=== PATIENT | male | born 1940 | race Caucasian/White ===

== ENCOUNTER 2017-06-24 21:41 | Emergency (ER) | payer MEDICARE, OTHER ==
[2017-06-24] MEDS ORDERED: Metoclopramide 10 MG/2 ML SDV IVPUSH ONE (22:32)
[2017-06-24] MEDS ORDERED: LORazepam 2 MG/ML MDV IVPUSH ONE (22:33)
--- NOTE | 2017-06-24 22:33 | EDM.PDOC ---
ED HPI GENERAL MEDICAL PROBLEM - General Chief Complaint: Neuro Symptoms/Deficits Stated Complaint: DIZZY/NAUSEA Time Seen by Provider: 06/24/17 22:32 Source of Information: Reports: Patient History Limitations: Reports: No Limitations - History of Present Illness INITIAL COMMENTS - FREE TEXT/NARRATIVE: 77-year-old male presents to the ED with a sense of feeling off balance. This started about 1900 hrs. last evening so she with nausea and vomiting. Denies falling or hitting his head recently. No changes recent change in medications. Eyes any recent sinus infection or colds. He does have an anxiety issue and he states this did of course precipitate anxiety but is different than what is expressed in the past. He came because he was worried that he might be having a stroke or heart attack. He holds still has no symptoms. He has no history of vertigo in the past. Onset: Today Onset Date: 06/24/17 Onset Time: 19:00 Duration: Hour(s): Location: Reports: Generalized (Sense of off balance and that he might be spinning versus the room.) Quality: Reports: Other Severity: Moderate (Vertigo) Improves with: Reports: Rest Worsens with: Reports: Movement (Not moving.) Context: Denies: Activity ( Otherwise head and neck.), Exercise, Lifting, Sick Contact, Trauma, Other Associated Symptoms: Reports: Weakness, Other. Denies: No Other Symptoms, Confusion, Chest Pain, Cough, Diaphoresis, Fever/Chills, Headaches, Loss of Appetite, Malaise, Nausea/Vomiting, Rash, Seizure, Shortness of Breath, Syncope Treatments W[employer]PROO[employer] HELPER: Reports: Other (see below) Bilateral Shoulder Pain Score (Numeric/FACES): 4 - Related Data Allergies Allergy/AdvReac Type Severity Reaction Status Date / Time No Known Allergies Allergy Verified 06/24/17 21:59 Home Meds: Home Meds Ascorbic Acid [C-1000] 500 mg PO DAILY 06/24/17 [History] Aspirin 81 mg PO DAILY 06/24/17 [History] Azelastine/Fluticasone [Dymista Nasal [place]] 2 spray NASBOTH DAILY 06/24/17 [ History] Calcium Citrate/Vitamin D3 [Calcium Citrate + D] 1 tab PO DAILY 06/24/17 [ History] Celecoxib [CeleBREX] 100 mg PO DAILY 06/24/17 [History] Dorzolamide/Timolol [Cosopt 2%-0.5% Ophth Soln] 1 drop EYERT DAILY 06/24/17 [ History] Esomeprazole [NexIUM] 40 mg PO DAILY 06/24/17 [History] Hydrochlorothiazide 25 mg PO DAILY 06/24/17 [History] Ipratropium [place] 1 spray NASBOTH BID 06/24/17 [History] Losartan [Cozaar] 100 mg PO DAILY 06/24/17 [History] Loteprednol Etabonate [Lotemax] 1 drop EYERT DAILY 06/24/17 [History] Meclizine [Antivert] 12.5 mg PO TID #15 tablet 06/24/17 [Rx] Metoprolol Succinate [Toprol XL] 25 mg PO DAILY 06/24/17 [History] Multivitamin with Minerals [Multivitamins with Minerals] 2 tab PO DAILY [History] Simvastatin [Zocor] 20 mg PO BEDTIME 06/24/17 [History] amLODIPine [Norvasc] 10 mg PO DAILY 06/24/17 [History] Past Medical History HEENT History: Reports: Cataract, Impaired Vision Other HEENT History: Wears glasses Cardiovascular History: Reports: Arrhythmia, High Cholesterol, Hypertension Other Cardiovascular History: A-fib Respiratory History: Reports: Asthma Musculoskeletal History: Reports: Arthritis, Gout Psychiatric History: Reports: Anxiety - Past Surgical History HEENT Surgical History: Reports: Cataract Surgery GI Surgical History: Reports: Colonoscopy, EGD Musculoskeletal Surgical History: Reports: Knee Replacement, Shoulder Replacement Social & Family History - Tobacco Use Smoking Status *Q: Former Smoker Used Tobacco, but Quit: Yes Month Tobacco Last Used: 1976 - Alcohol Use Days Per Week of Alcohol Use: 2 Number of Drinks Per Day: 1 Total Drinks Per Week: 2 - Recreational Drug Use Recreational Drug Use: Yes - Living Situation & Occupation Living situation: Reports: Occupation: Retired ED ROS GENERAL - Review of Systems Review Of Systems: See Below Constitutional: Denies: Fever, Chills, Malaise, Weakness, Fatigue, Decreased Appetite HEENT: Reports: Glasses, Vertigo. 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 He also has chronic back pain is spine and neck.) Skin: Reports: Bruising (Bruises easily as he is on Eliquis.) Neurological: Reports: No Symptoms, Change in Speech Hematologic/Lymphatic: Reports: No Symptoms ED EXAM GENERAL NO PERIP PULSE - Physical Exam Exam: See Below Exam Limited By: No Limitations General Appearance: Alert, Anxious, Mild Distress Eye Exam: Bilateral Eye: Normal Inspection (No nystagmus.) Ears: Normal External Exam, Normal Canal, Normal TMs Throat/Mouth: Normal Inspection, Normal Lips, Normal Teeth, Normal Oropharynx, Other (Uvula in the midline) Head: Atraumatic, Normocephalic Neck: Normal Inspection, Supple, Non-Tender, Full Range of Motion Respiratory/Chest: No Respiratory Distress, Lungs Clear, Normal Breath Sounds, No Accessory Muscle Use Cardiovascular: Normal Peripheral Pulses, Regular Rate, Rhythm, No Edema, No Gallop (46/m.), Bradycardia (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 Normal alternate rapid alternating movements and normal [id number] and heel-to- marroquin exams) Psychiatric: Normal Affect, Normal Mood Skin Exam: Warm, Dry, Intact, Normal Color, No Rash Course - Vital Signs Last Recorded V/S: Last Vital Signs Temp 36.2 C 06/24/17 21:59 Pulse 46 L 06/24/17 21:59 Resp 13 06/24/17 21:59 BP 175/79 H 06/24/17 21:59 Pulse Ox 92 L 06/24/17 21:59 - Orders/Labs/Meds Orders: Active Orders 24 hr Category Date Time Status Sodium Chloride 0.9% [Normal Saline] 1,000 ml Med 06/24/17 22:45 Active IV ASDIRECTED Medication Orders Sodium Chloride (Normal Saline) 1,000 mls @ 150 mls/hr IV ASDIRECTED VALARIE Last Admin: 06/24/17 22:49 Dose: 150 mls/hr Meds: Medications Generic Name Dose Route Start Last Admin Trade Name Vito PRN Reason Stop Dose Admin Sodium Chloride 1,000 mls @ 150 mls/hr 06/24/17 22:45 06/24/17 22:49 Normal Saline IV 150 mls/hr ASDIRECTED VALARIE Administration Discontinued Medications Generic Name Dose Route Start Last Admin Trade Name Vito PRN Reason Stop Dose Admin Lorazepam 0.5 mg 06/24/17 22:33 06/24/17 22:49 Ativan IVPUSH 06/24/17 22:34 0.5 mg ONETIME ONE Administration Metoclopramide HCl 5 mg 06/24/17 22:32 06/24/17 22:50 Reglan IVPUSH 06/24/17 22:33 5 mg ONETIME ONE Administration - Radiology Interpretation Free Text/Narrative:: 77-year-old male presents the ED with typical signs and symptoms of proximal is more vertigo however he is not experiences in the past. Examination shows no definitive nystatin this. Neuro exam is otherwise completely normal. When he's at rest he has no symptoms. Symptoms started suddenly about 1900 hrs. last night. Associated nausea and did vomit once. Examination is otherwise normal. Plan IV D5 normal saline 150 mils per hour. Given Reglan 5 mg IV and Ativan 0.5 mg IV to stabilize balance mechanism. - Re-Assessments/Exams Free Text/Narrative Re-Assessment/Exam: 06/25/17 00:10: Got him up and walking and actually did very well with very minimal mild dizziness or feeling of off balance feeling. He will therefore be discharged to home. If he has similar symptoms tomorrow he is to fill prescription for Antivert 12.5 mg 3 times daily for the next 5 days. If he remains asymptomatic ED to no further medications. Patient and reassured that nothing serious is wrong other than vertigo symptoms. Departure - Departure Time of Disposition: 00:25 Disposition: Home, Self-Care 01 Condition: Fair Clinical Impression: Benign paroxysmal vertigo of left ear - Discharge Information Prescriptions: Meclizine [Antivert] 12.5 mg PO TID #15 tablet Instructions: Benign Positional Vertigo Referrals: William Baez MD [Primary Care Provider] - Forms: ED Department Discharge Additional Instructions: Evaluation the emergency room tonight in regards to sudden onset of vertigo symptoms when you felt off balance and like you were perhaps spinning or offkilter. This is associated with development of nausea vomiting. This is called vertigo it is due to mechanical problem with one of the balance mechanisms in the middle ear cavity called the labyrinth. Exam suggested that the left balance mechanism may not be working quite appropriately tonight. You are therefore given medication Reglan 5 mg with Ativan 0.5 mg to stabilize the balance mechanism. This seemed to have settled things down quite nicely as you' re able to get up and walk with only slight dizziness. Tomorrow morning to wish you to adopt a wait and see approach. If you experience further similar type events then going fill prescription for Antivert 12.5 mg tablets these are taken 1 every 8 hours for the next 5 days to bring the vertigo under control. They also stop vomiting. However if you don't expect any more vertigo attacks that do not fill the prescription. Follow-up with personal physician if you're not completely back to normal in 6 days time. - My Orders Last 24 Hours: My Active Orders 06/24/17 22:45 Sodium Chloride 0.9% [Normal Saline] 1,000 ml IV ASDIRECTED - Assessment/Plan Last 24 Hours: My Active Orders 06/24/17 22:45 Sodium Chloride 0.9% [Normal Saline] 1,000 ml IV ASDIRECTED
[2017-06-24] MEDS ORDERED: Sodium Chloride 0.9% 1,000 ML IV SCH (22:45)
== END 2017-06-25 00:35 | disposition home or self-care (01) ==
LOC: JD.ED 21:41
DX: H81.12 Benign paroxysmal vertigo, left ear (principal); I10 Essential (primary) hypertension; E78.00 Pure hypercholesterolemia, unspecified; Z87.891 Personal history of nicotine dependence; Z79.82 Long term (current) use of aspirin; Z79.899 Other long term (current) drug therapy
CPT/HCPCS: 96361; 96374; 96375; 99284; J2060; J2765; J7040

== ENCOUNTER 2020-12-09 13:13 | Emergency (ER) | payer MEDICARE, OTHER ==
[2020-12-09] MEDS ORDERED: Diltiazem 50 MG/10 ML SDV IVPUSH ONE (14:17)
--- NOTE | 2020-12-09 14:19 | EDM.PDOC ---
ED HPI GENERAL MEDICAL PROBLEM - General Chief Complaint: Cardiovascular Problem Stated Complaint: POSS AFIB Time Seen by Provider: 12/09/20 14:01 Source of Information: Reports: Patient, Family (daughter) History Limitations: Reports: No Limitations - History of Present Illness INITIAL COMMENTS - FREE TEXT/NARRATIVE: 1-year-old male presents to the ED in the accompaniment of his daughter. He states around 0930 hrs. this morning he appreciated palpitations or fluttering in his chest. He had no associated central chest pain. He has does have some pressure in the nape of his neck. He claims that this causes a bit of a headache at the back of his head. No nausea no vomiting no diaphoresis he does not feel weak in his legs. He also does not feel short of breath. He has a history of intermittent paroxysmal atrial fibrillation off and on for the last 7 to 8 years. Rate control is metoprolol succinate 25 mg daily. He is on baby aspirin daily. No distress from the heart rate which on the monitor is been averaging 110 bpm. ECG shows rate anywhere between 80 to 130/min. Onset: Today, Sudden Onset Date: 12/09/20 Onset Time: 09:30 Duration: Hour(s):, Constant Location: Reports: Chest (Fluttering feeling central mid chest.). Denies: Rad iates to Quality: Reports: Other (Fluttering in chest.) Severity: Mild Improves with: Reports: None Worsens with: Reports: None Context: Reports: Other (Spontaneous occurrence this morning upon awakening.). Denies: Activity, Exercise, Lifting, Sick Contact, Trauma Associated Symptoms: Denies: Confusion, Chest Pain, Cough, cough w sputum, Diaphoresis, Fever/Chills, Headaches, Loss of Appetite, Malaise, Nausea/Vomiting, Rash, Seizure, Shortness of Breath, Syncope, Weakness Treatments [employer]BER: Reports: Other (see below) (Only has medications this morning except for his albuterol inhaler.) - Related Data Allergies Allergy/AdvReac Type Severity Reaction Status Date / Time No Known Allergies Allergy Verified 12/09/20 13:37 Home Meds: Home Meds Ascorbic Acid [C-1000] 500 mg PO DAILY 06/24/17 [History] Aspirin 81 mg PO DAILY 06/24/17 [History] Azelastine/Fluticasone [Dymista Nasal Wake] 2 spray NASBOTH DAILY 06/24/17 [History] Calcium Citrate/Vitamin D3 [Calcium Citrate + D] 1 tab PO DAILY 06/24/17 [History] Celecoxib [CeleBREX] 100 mg PO DAILY 06/24/17 [History] Dorzolamide/Timolol [Cosopt 2%-0.5% Ophth Soln] 1 drop EYERT DAILY 06/24/17 [ History] Esomeprazole [NexIUM] 40 mg PO DAILY 06/24/17 [History] Hydrochlorothiazide 25 mg PO DAILY 06/24/17 [History] Ipratropium [place] 1 spray NASBOTH BID 06/24/17 [History] Losartan [Cozaar] 100 mg PO DAILY 06/24/17 [History] Loteprednol Etabonate [Lotemax] 1 drop EYERT DAILY 06/24/17 [History] Meclizine [Antivert] 12.5 mg PO TID #15 tablet 06/24/17 [Rx] Metoprolol Succinate [Toprol XL] 25 mg PO DAILY 06/24/17 [History] Multivitamin with Minerals [Multivitamins with Minerals] 2 tab PO DAILY 06/24/17 [History] Simvastatin [Zocor] 20 mg PO BEDTIME 06/24/17 [History] amLODIPine [Norvasc] 10 mg PO DAILY 06/24/17 [History] Past Medical History HEENT History: Reports: Cataract, Glaucoma, Impaired Vision Other HEENT History: Wears glasses Cardiovascular History: Reports: Afib (Paroxysmal intermittent atrial fibrillation.), Arrhythmia, High Cholesterol, Hypertension, SOB on Exertion. Denies: VT, PVD Other Cardiovascular History: A-fib Respiratory History: Reports: Asthma, COPD Musculoskeletal History: Reports: Arthritis, Gout, Osteoarthritis Psychiatric History: Reports: Anxiety - Past Surgical History HEENT Surgical History: Reports: Cataract Surgery GI Surgical History: Reports: Appendectomy, Cholecystectomy, Colonoscopy, EGD, Hernia, Inguinal Musculoskeletal Surgical History: Reports: Knee Replacement (Bilateral knee replacements.), Shoulder Replacement (Both shoulders have been replaced. The left has been worked on x2.) Other Musculoskeletal Surgeries/Procedures:: bilateral knee and shoulder Social & Family History - Tobacco Use Tobacco Use Status *Q: Former Tobacco User Used Tobacco, but Quit: Yes Month/Year Tobacco Last Used: 1989 - Caffeine Use Caffeine Use: Reports: None - Recreational Drug Use Recreational Drug Use: No - Living Situation & Occupation Living situation: Reports: Occupation: Retired ED ROS GENERAL - Review of Systems Review Of Systems: See Below Constitutional: Reports: Fatigue, Decreased Appetite. Denies: Fever, Chills, Malaise, Weakness, Weight Loss HEENT: Reports: Glasses, Other (Acuity problems due to glaucoma and macular degeneration.) Respiratory: Reports: Shortness of Breath, Wheezing, Cough. Denies: Pleuritic Chest Pain (Is no wheezing with his asthma COPD.), Sputum, Hemoptysis Cardiovascular: Reports: Blood Pressure Problem, Dyspnea on Exertion ( Usually little around the ankles.), Edema (Air.), Lightheadedness, Palpitations. Denies: Chest Pain, Claudication, Orthopnea Endocrine: Reports: Fatigue (Aware of palpitations this morning.) GI/Abdominal: Reports: Constipation (Occasional), Decreased Appetite. Denies: Melena, Nausea, Stool Incontinence, Vomiting : Reports: Frequency, Other (Nocturia x2. Known BPH.) Musculoskeletal: Reports: Joint Pain (30 changes knees hips neck and lumbar spine. He said both shoulders repaired i.e. total shoulder replacements with the left being required to be done twice.) Skin: Reports: Bruising (Bruises extremely easily.) Neurological: Reports: Headache (Pressure in the nape of his neck with a headache.). Denies: Confusion, Dizziness, Numbness, Pre-Existing Deficit, Seizure, Syncope, Tingling, Trouble Speaking, Difficulty Walking, Weakness Psychiatric: Reports: No Symptoms, Other Hematologic/Lymphatic: Reports: No Symptoms Immunologic: Reports: No Symptoms ED EXAM, GENERAL - Physical Exam Exam: See Below (Admits that he has been under good deal of stress the last 3 weeks.) Exam Limited By: Other (Temperature is 36.4 degrees. Heart rate 100 and irregular regular on the monitor. Respiratory is 20 with pulse ox of 94% room air) General Appearance: Alert, WD/WN, No Apparent Distress Eye Exam: Bilateral Eye: Normal Inspection (No blepharal pallor or scleral icter us.), PERRL Throat/Mouth: Normal Inspection, Normal Lips, Normal Oropharynx. No: Normal Teeth Head: Atraumatic, Normocephalic Neck: Normal Inspection, Supple, Non-Tender, Full Range of Motion. No: Lymphadenopathy (L), Lymphadenopathy (R) Respiratory/Chest: No Accessory Muscle Use, Respiratory Distress, Decreased Breath Sounds (Decreased air into the lower 25% lung quarles bilaterally.), Rales (Intermittent wheezing both lower lobes on forced expiration.), Wheezing. No: Lungs Clear, Normal Breath Sounds (Mild tachypnea.) Cardiovascular: No Gallop, No Murmur, No Rub, Irregularly Irregular. No: Normal Peripheral Pulses, Regular Rate, Rhythm, No Edema Peripheral Pulses: 1+: Posterior Tibial (L), Posterior Tibial (R), Dorsalis Pedis (L), Dorsalis Pedis (R), 2+: Carotid (L), Carotid (R) GI/Abdominal: Normal Bowel Sounds, Soft, Non-Tender, No Organomegaly, No Mass, Pelvis Stable, Other (Evidence of previous cholecystectomy.) Back Exam: Normal Inspection, Full Range of Motion. No: CVA Tenderness (L), CVA Tenderness (R) Extremities: Pedal Edema (Trace pedal edema 1+ at the ankles and dorsal feet.), Other (Extremities I dorsal hands wrists and forearms are dark black-purple in color from chronic bleeding into the subcutaneous tissues I believe from being on antiplatelet inhibitors. Currently he is only on aspirin he has marked atrophy of the left upper shoulder muscles , particular the deltoid f). No: Joint Swelling (Patient has had bilateral total shoulder replacements and bilateral total knee replacements.) Neurological: Alert, Oriented, CN II-XII Intact, Normal Cognition Psychiatric: Normal Affect, Normal Mood Skin Exam: Warm, Dry, Intact, Normal Color, No Rash #1 Interpretation EKG Date: 12/09/20 Time: 13:50 Rhythm: A-Fib Rate (Beats/Min): 97 [place]: LAD-Left [place] Deviation (Mild left axis deviation of -13 degrees) P-Wave: Variable QRS: Other (Initial poor R wave progression consider possible old anteroseptal myocardial infarction. Q waves are present leads III and aVF consider old inferior wall myocardial infarction.) ST-T: Other (Diffuse early repolarization pattern.) QT: Normal EKG Interpretation Comments: Abnormal ECG #2 Interpretation EKG Date: 12/09/20 Time: 15:08 Rhythm: Other Rate (Beats/Min): 54 (Occasional PVCs) [place]: LAD-Left [place] Deviation (Mild left axis deviation -11 degrees) P-Wave: Present QRS: Other (Q-wave V1 with near Q wave V2 V3 consider possible old anteroseptal myocardial infarction. Q-wave lead III and aVF suggestive of old inferior wall myocardial infarction. Tall R wave in lead I is suggestive of left ventricular perjury pattern. Abnormal ECG) ST-T: Other (T wave flattening lead III) QT: Normal EKG Interpretation Comments: Normal ECG Course - Vital Signs Last Recorded V/S: Last Vital Signs Temp 36.4 C 12/09/20 13:29 Pulse 60 12/09/20 16:30 Resp 16 12/09/20 16:30 BP 134/76 12/09/20 16:30 Pulse Ox 95 12/09/20 16:30 - Orders/Labs/Meds Labs: Laboratory Tests 12/09/20 12/09/20 12/09/20 Range/Units 14:45 14:45 14:45 WBC 7.97 (4.23-9.07) K/mm3 RBC 5.18 (4.63-6.08) M/mm3 Hgb 15.7 (13.7-17.5) gm/dl Hct 46.2 (40.1-51.0) % MCV 89.2 (79.0-92.2) fl MCH 30.3 (25.7-32.2) pg MCHC 34.0 (32.2-35.5) g/dl RDW Std Deviation 43.8 (35.1-43.9) fL Plt Count 143 L (163-337) K/mm3 MPV 10.7 (9.4-12.3) fl Neut % (Auto) 82.1 H (34.0-67.9) % Lymph % (Auto) 6.6 L (21.8-53.1) % [place] % (Auto) 9.9 (5.3-12.2) % Eos % (Auto) 0.5 L (0.8-7.0) Baso % (Auto) 0.6 (0.1-1.2) % Neut # (Auto) 6.54 H (1.78-5.38) K/mm3 Lymph # (Auto) 0.53 L (1.32-3.57) K/mm3 [place] # (Auto) 0.79 (0.30-0.82) K/mm3 Eos # (Auto) 0.04 (0.04-0.54) K/mm3 Baso # (Auto) 0.05 (0.01-0.08) K/mm3 Manual Slide Review Abnormal smear PT 11.3 (9.7-12.0) SECONDS INR 1.06 APTT 33.6 H (21.7-31.4) SECONDS Sodium 137 (136-145) mEq/L Potassium 3.9 (3.5-5.1) mEq/L Chloride 99 (98-107) mEq/L Carbon Dioxide 26 (21-32) mEq/L Anion Gap 15.9 H (5-15) BUN 24 H (7-18) mg/dL Creatinine 1.2 (0.7-1.3) mg/dL Est Cr Clr Drug Dosing 45.92 mL/min Estimated GFR (MDRD) 58 (>60) mL/min BUN/Creatinine Ratio 20.0 H (14-18) Glucose 131 H (83-115) mg/dL Calcium 8.9 (8.5-10.1) mg/dL Magnesium 1.7 L (1.8-2.4) mg/dl Total Bilirubin 1.2 H (0.2-1.0) mg/dL AST 24 (15-37) U/L ALT 28 (16-63) U/L Alkaline Phosphatase 67 (46-116) U/L CK-MB (CK-2) 2.2 (0-3.6) ng/ml Troponin I < 0.017 (0.00-0.056) ng/mL C-Reactive Protein 1.1 H* (<1.0) mg/dL NT-Pro-B Natriuret Pep (0-450) pg/mL Total Protein 7.3 (6.4-8.2) g/dl Albumin 4.0 (3.4-5.0) g/dl Globulin 3.3 gm/dL Albumin/Globulin Ratio 1.2 (1-2) TSH 3rd Generation 1.480 (0.358-3.74) uIU/mL 12/09/20 Range/Units 14:45 WBC (4.23-9.07) K/mm3 RBC (4.63-6.08) M/mm3 Hgb (13.7-17.5) gm/dl Hct (40.1-51.0) % MCV (79.0-92.2) fl MCH (25.7-32.2) pg MCHC (32.2-35.5) g/dl RDW Std Deviation (35.1-43.9) fL Plt Count (163-337) K/mm3 MPV (9.4-12.3) fl Neut % (Auto) (34.0-67.9) % Lymph % (Auto) (21.8-53.1) % [place] % (Auto) (5.3-12.2) % Eos % (Auto) (0.8-7.0) Baso % (Auto) (0.1-1.2) % Neut # (Auto) (1.78-5.38) K/mm3 Lymph # (Auto) (1.32-3.57) K/mm3 [place] # (Auto) (0.30-0.82) K/mm3 Eos # (Auto) (0.04-0.54) K/mm3 Baso # (Auto) (0.01-0.08) K/mm3 Manual Slide Review PT (9.7-12.0) SECONDS INR APTT (21.7-31.4) SECONDS Sodium (136-145) mEq/L Potassium (3.5-5.1) mEq/L Chloride (98-107) mEq/L Carbon Dioxide (21-32) mEq/L Anion Gap (5-15) BUN (7-18) mg/dL Creatinine (0.7-1.3) mg/dL Est Cr Clr Drug Dosing mL/min Estimated GFR (MDRD) (>60) mL/min BUN/Creatinine Ratio (14-18) Glucose (83-115) mg/dL Calcium (8.5-10.1) mg/dL Magnesium (1.8-2.4) mg/dl Total Bilirubin (0.2-1.0) mg/dL AST (15-37) U/L ALT (16-63) U/L Alkaline Phosphatase (46-116) U/L CK-MB (CK-2) (0-3.6) ng/ml Troponin I (0.00-0.056) ng/mL C-Reactive Protein (<1.0) mg/dL NT-Pro-B Natriuret Pep 444 (0-450) pg/mL Total Protein (6.4-8.2) g/dl Albumin (3.4-5.0) g/dl Globulin gm/dL Albumin/Globulin Ratio (1-2) TSH 3rd Generation (0.358-3.74) uIU/mL Meds: Medications Discontinued Medications Generic Name Dose Route Start Last Admin Trade Name Freq PRN Reason Stop Dose Admin Albuterol/Ipratropium 3 ml 12/09/20 14:59 12/09/20 15:17 Albuterol/Ipratropium 3.0-0.5 Mg/3 Ml Neb Soln NEB 12/09/20 15:00 3 ml ONETIME ONE Administration Diltiazem HCl 10 mg 12/09/20 14:17 12/09/20 14:39 Diltiazem 50 Mg/10 Ml Sdv IVPUSH 12/09/20 14:18 10 mg ONETIME ONE Administration Dextrose/Sodium Chloride 1,000 mls @ 100 mls/hr 12/09/20 14:30 12/09/20 14:40 Dextrose 5%-Normal Saline IV 100 mls/hr ASDIRECTED VALARIE Administration Diltiazem HCl 100 mg/ Sodium 100 mls @ 5 mls/hr 12/09/20 14:30 12/09/20 14:40 Chloride IV 5 mg/hr TITRATE VALARIE 5 mls/hr Administration Protocol 5 MG/HR - Radiology Interpretation Free Text/Narrative:: 80-year-old male presents to the ED with a fluttering feeling in his central chest since about 0930 hrs. this morning. He has a history of intermittent paroxysmal atrial fibrillation sensed 2012. He states usually with medicine it goes back into sinus rhythm. He is relatively asymptomatic other than some concerns for pressure in the nape of his neck and a headache. No associated nausea vomiting visual changes shortness of breath or weakness in his legs. Exam reveals stigmata of COPD with wheezing from both lower lobes and a few crackles in the right lung base. Heart rate is irregular irregular but with atrial fibrillation at 8235 bpm. Plan 1 normal saline at 100 mils per hour. Cardiazem 10 mg IV bolus and then 5 mg/h IV drip. Routine labs including cardiac markers and BNP to be done. AP chest x-ray to be done. - Re-Assessments/Exams Free Text/Narrative Re-Assessment/Exam: 12/09/20 14:56 portable chest x-ray reveals an elevated right hemidiaphragm which is seen previously on x-ray indicating a chronic finding. Slight scarring is noted above the right hemidiaphragm. Lungs show no acute parenchymal changes. Heart size and mediastinum are normal. Bilateral shoulder prostheses are evident. Nothing acute is appreciated. Is a drip is on at this time heart rate is staying in the 80s. He still remains in atrial fibrillation. BP is 137/87. O2 sats are between 91 and 93%. I will start him on oxygen at 2 L/min by nasal cannula. He is also quite wheezy on examination I will therefore provide a DuoNeb treatment for him with the risk that it speeds up his heart rate. 12/09/20 14:58 Patient appears to have converted back to sinus rhythm at 54 to 57 bpm. BP is 129/72 O2 sats are 92 to 93% 12/09/20 15:14 ECG indeed reveals that he has converted back to sinus rhythm at 54 bpm. He has initial poor R wave progression from V1 to V3 consider possible old anteroseptal myocardial infarction. 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 Occasional PVCs appreciated. Tall R wave in lead I is suggestive of left ventricular hypertrophy pattern. Mild left axis deviation of -11 degrees. Plan we will leave him on the Cardizem drip for another 15 to 20 minutes and then discontinue it and see how he does. 12/09/20 15:24: White count is normal at 7.97. There is a left shift with 82.1% neutrophils on the auto differential. Hemoglobin is 15.7 with hematocrit of 46.2. Platelet count is 143,000 slightly low. Sodium 137 with a potassium of 3.9. Chloride is 99 with a bicarb of 26. Anion gap is 15.9. BUN is 24 with a creatinine of 1.2 GFR is 58. BUN/creatinine ratio is slightly elevated at 20.0 . Glucose is 131. Calcium is 8.9. Magnesium is slightly low at 1.7. 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 CK-MB fraction is 2.2 with a troponin I of less than 0.017. C-reactive protein is 1.1. Total protein 7.3 with an albumin fraction of 4.0 TSH is 1.48. BNP is pending 12/09/20 16:14 he has remained in sinus rhythm at 60/min with blood pressure maintained at 130/75. He will be discharged home in the care of his daughter. 12/09/20 16:52 CRP is 1.1 and BNP is 444. Departure - Departure Time of Disposition: 16:13 Disposition: Home, Self-Care 01 Reason for Transfer *Q: Other Condition: Fair Clinical Impression: Paroxysmal atrial fibrillation with rapid ventricular response, Mild congestive heart failure Instructions: Atrial Fibrillation, [id number] Referrals: Ney Parks MD [Primary Care Provider] - Forms: ED Department Discharge Additional Instructions: Evaluation in the emergency room today in regards to feeling of fluttering feeling in your chest and recognizing that your pulse was irregularly irregular and high. You have a history for the last 8 years of having intermittent atrial fibrillation. Today your rate was as high as 135 bpm. You were treated with intravenous cardia zyme 10 mg IV bolus and then 5 mg/h and within the hour you pretty well converted back to normal rhythm in the 50s. At the time of discharge heart rate was 60. Blood pressure is good at 126/72. At this time I would not add any medications to your treatment plan. However 1 consider a small dose of digoxin daily if this continues to happen to help prevent recurrence of atrial fibrillation and need for daily anticoagulation. Activity as tolerated although you may feel quite tired and fatigued for the next day or so as heart rate of 135 is like running a race and as you would expect he would feel tired from this. Diet as tolerated. Try and watch your sodium content in diet particularly salty soups etc. Follow-up with personal care physician or return to the ED if any further problems occur. Sepsis Event Note (ED) - Evaluation Sepsis Screening Result: No Definite Risk - Focused Exam Vital Signs: Vital Signs Temp Pulse Resp BP Pulse Ox Pulse Ox 12/09/20 16:30 60 16 134/76 95 12/09/20 15:07 55 L 16 129/72 95 12/09/20 14:59 94 L 12/09/20 13:29 36.4 C 100 20 130/85
[2020-12-09] MEDS ORDERED: Diltiazem 100 MG in Sodium Chloride 0.9% 100 ML IV SCH (14:30)
[2020-12-09] MEDS ORDERED: Dextrose 5%-0.9% NaCl 1,000 ML IV SCH (14:30)
--- NOTE | 2020-12-09 14:35 | CR ---
Chest: Portable view of the chest was obtained. Comparison: Prior chest x-ray of 10/14/12. Elevated right hemidiaphragm is seen which is a chronic finding. Slight scarring is noted above the right hemidiaphragm. Lungs show no acute parenchymal change. Heart size and mediastinum are normal. Bilateral shoulder prostheses are seen. Impression: 1. Findings as noted above. 2. Nothing acute is appreciated. Diagnostic code #2
[2020-12-09] MEDS ORDERED: Albuterol/Ipratropium 3.0-0.5 MG/3 ML Neb Soln NEB ONE (14:59)
== END 2020-12-09 16:33 | disposition home or self-care (01) ==
LOC: JD.ED 13:13
DX: I48.0 Paroxysmal atrial fibrillation (principal); I11.0 Hypertensive heart disease with heart failure; I50.9 Heart failure, unspecified; E78.00 Pure hypercholesterolemia, unspecified; J44.9 Chronic obstructive pulmonary disease, unspecified; M10.9 Gout, unspecified; Z79.82 Long term (current) use of aspirin; Z79.899 Other long term (current) drug therapy; Z87.891 Personal history of nicotine dependence
CPT/HCPCS: 36415; 71045; 80053; 82553; 83735; 83880; 84443; 84484; 85025; 85610; 85730; 86140; 93005; 94640; 96365; 99285; J3490; J7042; 93010; 99284; J7620-GY

== ENCOUNTER 2021-05-15 13:36 | Emergency (ER) | payer MEDICARE, OTHER ==
[2021-05-15] MEDS ORDERED: Sodium Chloride 0.9% 10 ML Syringe FLUSH PRN (14:35)
--- NOTE | 2021-05-15 14:39 | EDM.PDOC ---
ED HPI GENERAL MEDICAL PROBLEM - General Chief Complaint: Cardiovascular Problem Stated Complaint: A-FIB SYMPTOMS Time Seen by Provider: 05/15/21 14:30 Source of Information: Reports: Patient, RN Notes Reviewed History Limitations: Reports: No Limitations - History of Present Illness INITIAL COMMENTS - FREE TEXT/NARRATIVE: Patient is an 81-year-old male who presents to the ER for the evaluation of his atrial fibrillation symptoms. Patient states has been ongoing since roughly yesterday morning. He notes that his heart beats faster at times and then bit slower. He has a history of paroxysmal A. fib. Last visit to the ER in November 2020, and he was placed on a Cardizem drip, but did convert to normal sinus rhythm. He states he has some feelings of his chest fluttering, but no active chest pain or anything like that. He is having no fevers or chills, cough or shortness of breath, any sort of nausea/vomiting/diarrhea. Patient is on metoprolol 25 mg daily, and a baby aspirin for management. Employment Trainer is Dr. Parks. Patient's not had any change in his medications and is taking them as he should. - Related Data Allergies Allergy/AdvReac Type Severity Reaction Status Date / Time No Known Allergies Allergy Verified 12/09/20 13:37 Home Meds: Home Meds Ascorbic Acid [C-1000] 500 mg PO DAILY 06/24/17 [History] Aspirin 81 mg PO DAILY 06/24/17 [History] Azelastine/Fluticasone [Dymista Nasal [place]] 2 spray NASBOTH DAILY 06/24/17 [History] Calcium Citrate/Vitamin D3 [Calcium Citrate + D] 1 tab PO DAILY 06/24/17 [History] Celecoxib [CeleBREX] 100 mg PO DAILY 06/24/17 [History] Dorzolamide/Timolol [Cosopt 2%-0.5% Ophth Soln] 1 drop EYERT DAILY 06/24/17 [History] Esomeprazole [NexIUM] 40 mg PO DAILY 06/24/17 [History] Hydrochlorothiazide 25 mg PO DAILY 06/24/17 [History] Ipratropium [place] 1 spray NASBOTH BID 06/24/17 [History] Losartan [Cozaar] 100 mg PO DAILY 06/24/17 [History] Loteprednol Etabonate [Lotemax] 1 drop EYERT DAILY 06/24/17 [History] Meclizine [Antivert] 12.5 mg PO TID #15 tablet 06/24/17 [Rx] Metoprolol Succinate [Toprol XL] 25 mg PO DAILY 06/24/17 [History] Multivitamin with Minerals [Multivitamins with Minerals] 2 tab PO DAILY 06/24/17 [History] Simvastatin [Zocor] 20 mg PO BEDTIME 06/24/17 [History] amLODIPine [Norvasc] 10 mg PO DAILY 06/24/17 [History] Past Medical History HEENT History: Reports: Cataract, Glaucoma, Impaired Vision Other HEENT History: Wears glasses Cardiovascular History: Reports: Afib (Paroxysmal intermittent atrial fibrillation.), Arrhythmia, High Cholesterol, Hypertension, SOB on Exertion. 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 The left has been worked on x2.) Other Musculoskeletal Surgeries/Procedures:: bilateral knee and shoulder Social & Family History - Caffeine Use Caffeine Use: Reports: None - Living Situation & Occupation Living situation: Reports: Occupation: Retired ED ROS GENERAL - Review of Systems Review Of Systems: Comprehensive ROS is negative, except as noted in HPI. ED EXAM, GENERAL - Physical Exam Exam: See Below Exam Limited By: No Limitations General Appearance: Alert, WD/WN, No Apparent Distress Respiratory/Chest: No Respiratory Distress, Lungs Clear, Normal Breath Sounds, No Accessory Muscle Use, Chest Non-Tender Cardiovascular: Normal Peripheral Pulses, No Edema, Other (regularly irregular pulse) Peripheral Pulses: 2+: Radial (L), Radial (R) Extremities: Normal Inspection, Normal Capillary Refill Neurological: Alert, Oriented, Normal Cognition, No Motor/Sensory Deficits Psychiatric: Normal Affect, Normal Mood Skin Exam: Warm, Dry, Intact, Normal Color, No Rash #1 Interpretation EKG Date: 05/15/21 Time: 14:47 Rhythm: A-Fib (rate controlled) Rate (Beats/Min): 87 [place]: Normal P-Wave: Present QRS: Normal ST-T: Normal QT: Normal EKG Interpretation Comments: No obvious ischemia or acute ST changes noted, reviewed by myself and Dr. Miller. Course - Vital Signs Last Recorded V/S: Last Vital Signs Temp 96.8 F L 05/15/21 14:23 Pulse 85 05/15/21 14:23 Resp 19 05/15/21 14:23 BP 131/88 05/15/21 14:23 Pulse Ox 97 05/15/21 14:23 - Orders/Labs/Meds Orders: Active Orders 24 hr Category Date Time Status Peripheral IV Care [RC] . DIRECTED Care 05/15/21 14:35 Active PRO B-TYPE NATRIUR PEPT,BNPPRO [CHEM] Stat Lab 05/15/21 14:35 Ordered Sodium Chloride 0.9% [Saline Flush] Med 05/15/21 14:35 Active 10 ml FLUSH ASDIRECTED PRN Peripheral IV Insertion Adult [OM.PC] Stat Oth 05/15/21 14:35 Ordered Medication Orders Sodium Chloride (Sodium Chloride 0.9% 10 Ml Syringe) 10 ml FLUSH ASDIRECTED PRN PRN Reason: Keep Vein Open Last Admin: 05/15/21 14:41 Dose: 10 ml Documented by: JANETH Labs: Laboratory Tests 05/15/21 05/15/21 05/15/21 Range/Units 14:45 14:45 14:45 WBC 5.97 (4.23-9.07) K/mm3 RBC 5.13 (4.63-6.08) M/mm3 Hgb 15.7 (13.7-17.5) gm/dl Hct 46.0 (40.1-51.0) % MCV 89.7 (79.0-92.2) fl MCH 30.6 (25.7-32.2) pg MCHC 34.1 (32.2-35.5) g/dl RDW Std Deviation 44.1 H (35.1-43.9) fL Plt Count 163 (163-337) K/mm3 MPV 10.1 (9.4-12.3) fl Neut % (Auto) 77.1 H (34.0-67.9) % Lymph % (Auto) 13.9 L (21.8-53.1) % [place] % (Auto) 7.5 (5.3-12.2) % Eos % (Auto) 0.8 (0.8-7.0) Baso % (Auto) 0.5 (0.1-1.2) % Neut # (Auto) 4.60 (1.78-5.38) K/mm3 Lymph # (Auto) 0.83 L (1.32-3.57) K/mm3 [place] # (Auto) 0.45 (0.30-0.82) K/mm3 Eos # (Auto) 0.05 (0.04-0.54) K/mm3 Baso # (Auto) 0.03 (0.01-0.08) K/mm3 PT 11.0 (9.7-12.0) SECONDS INR 0.99 APTT 33.7 H (21.7-31.4) SECONDS Sodium 140 (136-145) mEq/L Potassium 4.5 (3.5-5.1) mEq/L Chloride 104 (98-107) mEq/L Carbon Dioxide 23 (21-32) mEq/L Anion Gap 17.5 H (5-15) BUN 30 H (7-18) mg/dL Creatinine 1.6 H (0.7-1.3) mg/dL Est Cr Clr Drug Dosing 33.84 mL/min Estimated GFR (MDRD) 41 (>60) mL/min BUN/Creatinine Ratio 18.8 H (14-18) Glucose 124 H (70-99) mg/dL Calcium 9.1 (8.5-10.1) mg/dL Magnesium 2.1 (1.8-2.4) mg/dL Total Bilirubin 1.0 (0.2-1.0) mg/dL AST 24 (15-37) U/L ALT 37 (16-63) U/L Alkaline Phosphatase 61 (46-116) U/L Troponin I < 0.017 (0.00-0.056) ng/mL Total Protein 7.5 (6.4-8.2) g/dl Albumin 4.2 (3.4-5.0) g/dl Globulin 3.3 gm/dL Albumin/Globulin Ratio 1.3 (1-2) Meds: Medications Generic Name Dose Route Start Last Admin Trade Name Freq PRN Reason Stop Dose Admin Sodium Chloride 10 ml 05/15/21 14:35 05/15/21 14:41 Sodium Chloride 0.9% 10 Ml Syringe FLUSH 10 ml ASDIRECTED PRN Administration Keep Vein Open - Re-Assessments/Exams Free Text/Narrative Re-Assessment/Exam: 05/15/21 14:43 Patient presents to the ER for his ongoing A. fib symptoms. As far as work-up initially is concerned, his rate is controlled so doing Cardizem is probably not in the near future at this time. I did discuss the findings with Dr. Miller as well. He agrees at this time. We will go ahead and get some basic labs, EKG and a chest x-ray for management. 05/15/21 15:08 Chest x-ray was done and is read as stable no acute findings. 05/15/21 16:00 Patient's labs are unremarkable, troponin is undetectably low, BNP is still resulting however due to the machine being down in the laboratory. If this s hould come back high or worrisome we will contact the patient for ongoing management otherwise there is no other management that is needed at today's visit for the most part we will go ahead and get him discharged with general recommendations. Departure - Departure Time of Disposition: 16:00 Disposition: Home, Self-Care 01 Condition: Good Clinical Impression: Atrial fibrillation with controlled ventricular rate Instructions: Atrial Fibrillation, [id number] Referrals: William Baez MD [Primary Care Provider] - Forms: ED Department Discharge Additional Instructions: You were evaluated in the ER today for your A. fib symptoms. Although you are in A. fib, your rate is controlled and does not necessitate any sort of IV fluids or medications for ongoing management. Please monitor your heart rhythm, as you have been at home; if it should be tachycardic like in the 100s consistently, then you should come back to the ER for possible medical management. Or if you should have any sort of lightheaded dizziness, or any sort of chest pain symptoms. Continue all other medications as previously prescribed. Recommend you follow-up with your regular care provider, for reevaluation to make sure that your symptoms are getting better as expected. Do not hesitate to return to the ER at any time if symptoms change or worsen. Sepsis Event Note (ED) - Focused Exam Vital Signs: Vital Signs Temp Pulse Resp BP Pulse Ox 05/15/21 14:23 96.8 F L 85 19 131/88 97 - My Orders Last 24 Hours: My Active Orders 05/15/21 14:35 Peripheral IV Care [RC] . DIRECTED PRO B-TYPE NATRIUR PEPT,BNPPRO [CHEM] Stat Sodium Chloride 0.9% [Saline Flush] 10 ml FLUSH ASDIRECTED PRN Peripheral IV Insertion Adult [OM.PC] Stat - Assessment/Plan Last 24 Hours: My Active Orders 05/15/21 14:35 Peripheral IV Care [RC] . DIRECTED PRO B-TYPE NATRIUR PEPT,BNPPRO [CHEM] Stat Sodium Chloride 0.9% [Saline Flush] 10 ml FLUSH ASDIRECTED PRN Peripheral IV Insertion Adult [OM.PC] Stat
--- NOTE | 2021-05-15 15:05 | CR ---
Chest: Portable view of the chest was obtained. Comparison: Prior chest x-ray of 12/09/20. Area of scarring is seen within the right lung base. Lungs otherwise are clear with no acute parenchymal change. Slight elevation of the right hemidiaphragm is seen which is stable. Bilateral shoulder prostheses are seen. Scattered degenerative change is seen within the spine. Heart size and mediastinum are within normal limits. Impression: 1. Stable findings as noted above. 2. Nothing acute is appreciated on portable chest x-ray. Diagnostic code #2
== END 2021-05-15 16:15 | disposition home or self-care (01) ==
LOC: JD.ED 13:36
DX: I48.91 Unspecified atrial fibrillation (principal); J44.9 Chronic obstructive pulmonary disease, unspecified; I10 Essential (primary) hypertension; Z79.899 Other long term (current) drug therapy; Z79.82 Long term (current) use of aspirin
CPT/HCPCS: 36415; 71045; 71045-26; 80053; 83735; 83880; 84484; 85025; 85610; 85730; 93005; 99285-25

== ENCOUNTER 2022-02-05 22:08 | Emergency (ER) | payer MEDICARE, OTHER ==
[2022-02-06] MEDS ORDERED: Ibuprofen 600 MG Tab PO ONE (00:50)
[2022-02-06] MEDS ORDERED: Orphenadrine 100 MG Tab.ER PO STA (00:50)
== END 2022-02-06 01:47 | disposition home or self-care (01) ==
LOC: JD.ED 22:08
DX: R07.82 Intercostal pain (principal); I48.91 Unspecified atrial fibrillation; I25.10 Atherosclerotic heart disease of native coronary artery without angina pectoris; E78.00 Pure hypercholesterolemia, unspecified; I10 Essential (primary) hypertension; M10.9 Gout, unspecified; M19.90 Unspecified osteoarthritis, unspecified site; Z87.891 Personal history of nicotine dependence; Z91.041 Radiographic dye allergy status; Z79.82 Long term (current) use of aspirin; Z79.899 Other long term (current) drug therapy
CPT/HCPCS: 36415; 71046; 80053; 83735; 84484; 85007; 85027; 93005; 99284; A9270; 93010

== ENCOUNTER 2022-09-03 11:10 | Emergency (ER) | payer MEDICARE, OTHER ==
[2022-09-03] MEDS ORDERED: Sodium Chloride 0.9% 10 ML Syringe FLUSH PRN (11:43)
[2022-09-03] MEDS ORDERED: Albuterol/Ipratropium 3.0-0.5 MG/3 ML Neb Soln NEB ONE (11:43)
== END 2022-09-03 14:30 | disposition home or self-care (01) ==
LOC: JD.ED 11:10
DX: J45.901 Unspecified asthma with (acute) exacerbation (principal); R60.0 Localized edema; R73.9 Hyperglycemia, unspecified; I48.91 Unspecified atrial fibrillation; I25.10 Atherosclerotic heart disease of native coronary artery without angina pectoris; E78.00 Pure hypercholesterolemia, unspecified; I10 Essential (primary) hypertension; M10.9 Gout, unspecified; Z91.041 Radiographic dye allergy status; Z79.82 Long term (current) use of aspirin; Z79.899 Other long term (current) drug therapy
CPT/HCPCS: 36415; 71045; 80053; 83735; 83880; 84484; 85025; 85379; 85610; 85730; 93005; 94640; 99285; J3490; J7620-GY

== ENCOUNTER 2022-12-11 13:53 | Inpatient (IN) | payer MEDICARE, OTHER ==
[2022-12-11] MEDS ORDERED: Sodium Chloride 0.9% 10 ML Syringe FLUSH PRN (14:19)
[2022-12-11 15:00] LABS: BASOPHILS ABSOLUTE AUTO 0.02 K/mm3 (0.01-0.08); BASOPHILS PERCENT AUTO 0.3 % (0.1-1.2); EOSINOPHILS ABSOLUTE AUTO 0.03 K/mm3 (0.04-0.54); EOSINOPHILS PERCENT AUTO 0.5 (0.8-7.0); HEMATOCRIT 37.5 % (40.1-51.0); HEMOGLOBIN 12.8 gm/dl (13.7-17.5); IMMATURE GRAN ABSOLUTE AUTO 0.03 K/mm3 (0.00-0.10); IMMATURE GRAN PERCENT AUTO 0.5 % (<=1.0); LYMPHOCYTES ABSOLUTE AUTO 0.46 K/mm3 (1.32-3.57); LYMPHOCYTES PERCENT AUTO 7.8 % (21.8-53.1); MEAN CORPUSCULAR HGB CONC 34.1 g/dl (32.2-35.5); MEAN CORPUSCULAR VOLUME 90.8 fl (79.0-92.2); MEAN PLATELET VOLUME 9.7 fl (9.4-12.3); MONOCYTES ABSOLUTE AUTO 0.47 K/mm3 (0.30-0.82); NEUTROPHILS ABSOLUTE AUTO 4.85 K/mm3 (1.78-5.38); NEUTROPHILS PERCENT AUTO 82.9 % (34.0-67.9); PLATELET COUNT,PLT 162 K/mm3 (163-337); RED BLOOD CELL COUNT 4.13 M/mm3 (4.63-6.08); WHITE BLOOD CELL COUNT,WBC 5.86 K/mm3 (4.23-9.07)
[2022-12-11 15:26] LABS: A/G RATIO 0.7 (1-2); ALBUMIN 2.9 g/dl (3.4-5.0); ANION GAP 16.4 (5-15); BILIRUBIN TOTAL 1.3 mg/dL (0.2-1.0); BUN/CREATININE RATIO 15.5 (14-18); CALCIUM 8.9 mg/dL (8.5-10.1); EST CRCL DRUG DOSING (CG) 26.6 mL/min; MAGNESIUM 1.4 mg/dL (1.8-2.4); POTASSIUM,K 4.4 mEq/L (3.5-5.1); PROTEIN TOTAL,TP 6.8 g/dl (6.4-8.2)
[2022-12-11 15:32] LABS: LACTIC ACID 2.2 mmol/L (0.4-2.0)
[2022-12-11 15:43] LABS: C-REACTIVE PROTEIN 19.8 mg/dL (<1.0)
[2022-12-11] MEDS ORDERED: cefTRIAXone 2 GM in Sodium Chloride 0.9% 100 ML IV ONE (15:52)
[2022-12-11] MEDS ORDERED: Albuterol/Ipratropium 3.0-0.5 MG/3 ML Neb Soln NEB ONE (16:33)
[2022-12-11] MEDS ORDERED: Ondansetron 4 MG/2 ML SDV IVPUSH PRN (20:37)
[2022-12-11] MEDS ORDERED: Digoxin 125 MCG Tab PO SCH (21:00)
[2022-12-11] MEDS: Sodium Chloride 0.9% 1,000 ML IV SCH (21:29)
[2022-12-11] MEDS ORDERED: LORazepam 1 MG Tab PO PRN (22:26)
[2022-12-11] MEDS ORDERED: Insulin Lispro 100 Unit/ML 3 ML KwikPen SUBCUT SCH (22:26)
[2022-12-11] MEDS ORDERED: Insulin Lispro 100 Unit/ML 3 ML KwikPen SUBCUT ONE (22:45)
[2022-12-11] MEDS: Sertraline 25 MG Tab PO SCH (23:06)
[2022-12-12] MEDS: Albuterol 6.7 GM Inhaler INH PRN ×3 (03:02→21:29)
[2022-12-12] MEDS: Acetaminophen 325 MG Tab PO PRN ×2 (04:04→11:57)
[2022-12-12 06:02] LABS: HEMATOCRIT 32.2 % (40.1-51.0); MEAN CORPUSCULAR HEMOGLOBIN 31.1 pg (25.7-32.2); MEAN CORPUSCULAR HGB CONC 34.2 g/dl (32.2-35.5); MEAN PLATELET VOLUME 9.9 fl (9.4-12.3); PLATELET COUNT,PLT 140 K/mm3 (163-337); RED BLOOD CELL COUNT 3.54 M/mm3 (4.63-6.08); WHITE BLOOD CELL COUNT,WBC 5.12 K/mm3 (4.23-9.07)
[2022-12-12] MEDS: Pantoprazole 40 MG Tab.CR PO SCH (06:08)
[2022-12-12] MEDS: Furosemide 20 MG Tab PO SCH ×2 (06:08→15:03)
[2022-12-12] MEDS: Sodium Chloride 0.9% 1,000 ML IV SCH (06:10)
[2022-12-12 06:15] LABS: ANION GAP 11.6 (5-15); BUN/CREATININE RATIO 17.3 (14-18); CALCIUM 8.2 mg/dL (8.5-10.1); CREATININE 1.5 mg/dL (0.7-1.3); EST CRCL DRUG DOSING (CG) 35.47 mL/min; POTASSIUM,K 3.6 mEq/L (3.5-5.1)
[2022-12-12] MEDS: Formoterol/Mometasone 200-5 MCG 8.8 GM Inhaler IH SCH ×2 (08:40→21:29)
[2022-12-12] MEDS ORDERED: LOTEPREDNOL ETABONATE EYERT SCH (09:00)
[2022-12-12] MEDS ORDERED: Miconazole 2% Crm 30 GM Tube TOP SCH (09:00)
[2022-12-12] MEDS ORDERED: Metoprolol Succinate 25 MG Tab.ER PO SCH (09:00)
[2022-12-12] MEDS ORDERED: Brimonidine 0.2% Ophth Soln 15 ML Bottle EYERT SCH (09:00)
[2022-12-12] MEDS ORDERED: Tiotropium Bromide 4 GM Inhalation Spray (2.5mcg/1 dose; 10 doses) INH SCH (09:00)
[2022-12-12] MEDS ORDERED: Dorzolamide/Timolol 2%-0.5% Ophth Soln 10 ML Bottle EYERT SCH (09:00)
[2022-12-12] MEDS: Insulin Lispro 100 Unit/ML 3 ML KwikPen SUBCUT SCH ×4 (09:04→21:55)
[2022-12-12] MEDS: Dorzolamide 2% Ophth Soln 10 ML Bottle EYERT SCH ×2 (09:06→11:14)
[2022-12-12] MEDS: Multivitamin Tab PO SCH (09:07)
[2022-12-12] MEDS: Apixaban 5 MG Tab PO SCH ×2 (09:07→20:30)
[2022-12-12] MEDS: Rosuvastatin 10 MG Tab PO SCH (09:07)
[2022-12-12] MEDS: SIMBRINZA EYERT SCH ×2 (12:02→20:32)
[2022-12-12] MEDS: Albuterol/Ipratropium 3.0-0.5 MG/3 ML Neb Soln NEB PRN (13:51)
[2022-12-12] MEDS ORDERED: Ibuprofen 400 MG Tab PO ONE (15:15)
[2022-12-12] MEDS: cefTRIAXone 2 GM in Sodium Chloride 0.9% 100 ML IV SCH (16:09)
[2022-12-12] MEDS: Digoxin 125 MCG Tab PO SCH (18:28)
[2022-12-12] MEDS: Metoprolol Succinate 25 MG Tab.ER PO SCH (20:29)
[2022-12-12] MEDS: Sertraline 25 MG Tab PO SCH (20:30)
[2022-12-12] MEDS: LOTEPREDNOL ETABONATE EYERT SCH (20:33)
[2022-12-12] MEDS: Carboxymethylcellulose Sodium 1% Ophth Gel 15 ML Bottle EYEBOTH SCH (20:33)
[2022-12-12] MEDS: Miconazole 2% Crm 30 GM Tube TOP SCH (21:08)
[2022-12-13] MEDS: Acetaminophen 325 MG Tab PO PRN ×2 (05:33→16:45)
[2022-12-13] MEDS: Furosemide 20 MG Tab PO SCH ×2 (06:47→16:06)
[2022-12-13] MEDS: Pantoprazole 40 MG Tab.CR PO SCH (06:47)
[2022-12-13] MEDS: Albuterol/Ipratropium 3.0-0.5 MG/3 ML Neb Soln NEB PRN ×2 (08:25→17:50)
[2022-12-13] MEDS: Formoterol/Mometasone 200-5 MCG 8.8 GM Inhaler IH SCH ×2 (08:26→20:30)
[2022-12-13 09:13] LABS: BASOPHILS ABSOLUTE AUTO 0.05 K/mm3 (0.01-0.08); BASOPHILS PERCENT AUTO 0.8 % (0.1-1.2); EOSINOPHILS ABSOLUTE AUTO 0.11 K/mm3 (0.04-0.54); EOSINOPHILS PERCENT AUTO 1.8 (0.8-7.0); HEMATOCRIT 34.4 % (40.1-51.0); HEMOGLOBIN 11.8 gm/dl (13.7-17.5); IMMATURE GRAN ABSOLUTE AUTO 0.02 K/mm3 (0.00-0.10); IMMATURE GRAN PERCENT AUTO 0.3 % (<=1.0); LYMPHOCYTES ABSOLUTE AUTO 0.45 K/mm3 (1.32-3.57); LYMPHOCYTES PERCENT AUTO 7.4 % (21.8-53.1); MEAN CORPUSCULAR HEMOGLOBIN 31.1 pg (25.7-32.2); MEAN CORPUSCULAR HGB CONC 34.3 g/dl (32.2-35.5); MEAN CORPUSCULAR VOLUME 90.5 fl (79.0-92.2); MEAN PLATELET VOLUME 9.6 fl (9.4-12.3); MONOCYTES ABSOLUTE AUTO 0.41 K/mm3 (0.30-0.82); MONOCYTES PERCENT AUTO 6.7 % (5.3-12.2); NEUTROPHILS ABSOLUTE AUTO 5.07 K/mm3 (1.78-5.38); PLATELET COUNT,PLT 152 K/mm3 (163-337); WHITE BLOOD CELL COUNT,WBC 6.11 K/mm3 (4.23-9.07)
[2022-12-13 09:28] LABS: ANION GAP 10.9 (5-15); BUN/CREATININE RATIO 15.3 (14-18); CALCIUM 8.5 mg/dL (8.5-10.1); CREATININE 1.5 mg/dL (0.7-1.3); EST CRCL DRUG DOSING (CG) 35.47 mL/min; MAGNESIUM 1.2 mg/dL (1.8-2.4); POTASSIUM,K 3.9 mEq/L (3.5-5.1)
[2022-12-13] MEDS: Rosuvastatin 10 MG Tab PO SCH (09:46)
[2022-12-13] MEDS: Apixaban 5 MG Tab PO SCH ×2 (09:46→20:49)
[2022-12-13] MEDS: Metoprolol Succinate 25 MG Tab.ER PO SCH ×2 (09:46→20:46)
[2022-12-13] MEDS: Multivitamin Tab PO SCH (09:46)
[2022-12-13] MEDS: Miconazole 2% Crm 30 GM Tube TOP SCH ×2 (09:48→20:49)
[2022-12-13] MEDS: SIMBRINZA EYERT SCH ×2 (09:52→20:50)
[2022-12-13] MEDS: Carboxymethylcellulose Sodium 1% Ophth Gel 15 ML Bottle EYEBOTH SCH ×2 (09:58→20:50)
[2022-12-13] MEDS: Insulin Lispro 100 Unit/ML 3 ML KwikPen SUBCUT SCH ×4 (10:00→21:16)
[2022-12-13] MEDS ORDERED: Magnesium Sulfate/Water 4 GM in Premix Bag 1 BAG IV ONE (10:08)
[2022-12-13] MEDS: Albuterol 6.7 GM Inhaler INH PRN ×2 (14:20→20:30)
[2022-12-13] MEDS ORDERED: diphenhydrAMINE 50 MG/ML SDV IVPUSH ONE (15:30)
[2022-12-13] MEDS ORDERED: Iopamidol 612 MG/ML 100 ML Bottle IVPUSH ONE (16:00)
[2022-12-13] MEDS ORDERED: Sodium Chloride 0.9% 10 ML Syringe FLUSH PRN (16:00)
[2022-12-13] MEDS: cefTRIAXone 2 GM in Sodium Chloride 0.9% 100 ML IV SCH (16:31)
[2022-12-13 17:15] LABS: CORONAVIRUS COVID-19 NAA NEGATIVE (NEGATIVE); INFLUENZA A NAA NEGATIVE (NEGATIVE); RESPIRATORY SYNCYTIAL VIR NAA NEGATIVE (NEGATIVE)
[2022-12-13] MEDS: Digoxin 125 MCG Tab PO SCH (18:15)
[2022-12-13] MEDS: Sertraline 25 MG Tab PO SCH (20:49)
[2022-12-13] MEDS: LOTEPREDNOL ETABONATE EYERT SCH (20:50)
[2022-12-14] MEDS: Acetaminophen 325 MG Tab PO PRN ×2 (01:49→12:47)
[2022-12-14 06:00] LABS: BASOPHILS ABSOLUTE AUTO 0.05 K/mm3 (0.01-0.08); BASOPHILS PERCENT AUTO 0.9 % (0.1-1.2); EOSINOPHILS ABSOLUTE AUTO 0.13 K/mm3 (0.04-0.54); EOSINOPHILS PERCENT AUTO 2.4 (0.8-7.0); HEMATOCRIT 32.5 % (40.1-51.0); IMMATURE GRAN ABSOLUTE AUTO 0.02 K/mm3 (0.00-0.10); IMMATURE GRAN PERCENT AUTO 0.4 % (<=1.0); LYMPHOCYTES ABSOLUTE AUTO 0.47 K/mm3 (1.32-3.57); LYMPHOCYTES PERCENT AUTO 8.8 % (21.8-53.1); MEAN CORPUSCULAR HEMOGLOBIN 30.5 pg (25.7-32.2); MEAN CORPUSCULAR HGB CONC 33.8 g/dl (32.2-35.5); MEAN PLATELET VOLUME 9.5 fl (9.4-12.3); MONOCYTES PERCENT AUTO 9.3 % (5.3-12.2); NEUTROPHILS ABSOLUTE AUTO 4.18 K/mm3 (1.78-5.38); NEUTROPHILS PERCENT AUTO 78.2 % (34.0-67.9); PLATELET COUNT,PLT 159 K/mm3 (163-337); RED BLOOD CELL COUNT 3.61 M/mm3 (4.63-6.08); WHITE BLOOD CELL COUNT,WBC 5.35 K/mm3 (4.23-9.07)
[2022-12-14 06:15] LABS: ANION GAP 11.3 (5-15); BUN/CREATININE RATIO 16.3 (14-18); CALCIUM 8.3 mg/dL (8.5-10.1); CREATININE 1.6 mg/dL (0.7-1.3); EST CRCL DRUG DOSING (CG) 33.25 mL/min; MAGNESIUM 2.1 mg/dL (1.8-2.4); POTASSIUM,K 3.3 mEq/L (3.5-5.1)
[2022-12-14 06:29] LABS: C-REACTIVE PROTEIN 19.2 mg/dL (<1.0)
[2022-12-14] MEDS: Pantoprazole 40 MG Tab.CR PO SCH (06:56)
[2022-12-14] MEDS: Formoterol/Mometasone 200-5 MCG 8.8 GM Inhaler IH SCH ×2 (08:23→20:59)
[2022-12-14] MEDS: Albuterol 6.7 GM Inhaler INH PRN (08:23)
[2022-12-14] MEDS: Insulin Lispro 100 Unit/ML 3 ML KwikPen SUBCUT SCH ×4 (09:44→21:52)
[2022-12-14] MEDS: Apixaban 5 MG Tab PO SCH ×2 (09:45→21:30)
[2022-12-14] MEDS: Rosuvastatin 10 MG Tab PO SCH (09:45)
[2022-12-14] MEDS: Multivitamin Tab PO SCH (09:46)
[2022-12-14] MEDS: Metoprolol Succinate 25 MG Tab.ER PO SCH ×2 (09:47→21:31)
[2022-12-14] MEDS: Furosemide 20 MG Tab PO SCH (09:47)
[2022-12-14] MEDS: Potassium Chloride 20 MEQ Tab.ER PO SCH ×2 (09:49→21:30)
[2022-12-14] MEDS: SIMBRINZA EYERT SCH ×2 (09:54→21:33)
[2022-12-14] MEDS: Carboxymethylcellulose Sodium 1% Ophth Gel 15 ML Bottle EYEBOTH SCH ×2 (09:56→21:32)
[2022-12-14] MEDS: Miconazole 2% Crm 30 GM Tube TOP SCH ×2 (09:56→21:34)
[2022-12-14 11:46] LABS: BORDETELLA PARAPERT IS1001 Not Detected (Not Detected)
[2022-12-14] MEDS: Albuterol/Ipratropium 3.0-0.5 MG/3 ML Neb Soln NEB PRN (14:17)
[2022-12-14] MEDS ORDERED: methylPREDNISolone Sodium Succinate 40 MG/1 ML SDV IVPUSH ONE (14:29)
[2022-12-14] MEDS: cefTRIAXone 2 GM in Sodium Chloride 0.9% 100 ML IV SCH (15:02)
[2022-12-14] MEDS: Azithromycin 250 MG Tab PO SCH (15:46)
[2022-12-14] MEDS: Digoxin 125 MCG Tab PO SCH (17:58)
[2022-12-14] MEDS: Sertraline 25 MG Tab PO SCH (21:31)
[2022-12-14] MEDS: methylPREDNISolone Sodium Succinate 40 MG/1 ML SDV IVPUSH SCH (21:32)
[2022-12-14] MEDS: LOTEPREDNOL ETABONATE EYERT SCH (21:33)
[2022-12-15 05:25] LABS: BASOPHILS ABSOLUTE AUTO 0.01 K/mm3 (0.01-0.08); BASOPHILS PERCENT AUTO 0.4 % (0.1-1.2); EOSINOPHILS PERCENT AUTO 0 (0.8-7.0); HEMATOCRIT 31.6 % (40.1-51.0); IMMATURE GRAN ABSOLUTE AUTO 0.01 K/mm3 (0.00-0.10); IMMATURE GRAN PERCENT AUTO 0.4 % (<=1.0); LYMPHOCYTES ABSOLUTE AUTO 0.21 K/mm3 (1.32-3.57); LYMPHOCYTES PERCENT AUTO 7.8 % (21.8-53.1); MEAN CORPUSCULAR HEMOGLOBIN 30.9 pg (25.7-32.2); MEAN CORPUSCULAR HGB CONC 34.8 g/dl (32.2-35.5); MEAN CORPUSCULAR VOLUME 88.8 fl (79.0-92.2); MEAN PLATELET VOLUME 9.5 fl (9.4-12.3); MONOCYTES ABSOLUTE AUTO 0.07 K/mm3 (0.30-0.82); MONOCYTES PERCENT AUTO 2.6 % (5.3-12.2); NEUTROPHILS PERCENT AUTO 88.8 % (34.0-67.9); PLATELET COUNT,PLT 199 K/mm3 (163-337); RED BLOOD CELL COUNT 3.56 M/mm3 (4.63-6.08)
[2022-12-15 05:56] LABS: ANION GAP 11.4 (5-15); BUN/CREATININE RATIO 17.1 (14-18); CALCIUM 8.4 mg/dL (8.5-10.1); CREATININE 1.7 mg/dL (0.7-1.3); EST CRCL DRUG DOSING (CG) 31.29 mL/min; POTASSIUM,K 4.4 mEq/L (3.5-5.1)
[2022-12-15 06:03] LABS: C-REACTIVE PROTEIN 16.8 mg/dL (<1.0)
[2022-12-15] MEDS: Pantoprazole 40 MG Tab.CR PO SCH (06:43)
[2022-12-15] MEDS: Insulin Lispro 100 Unit/ML 3 ML KwikPen SUBCUT SCH ×7 (07:36→20:58)
[2022-12-15] MEDS: Furosemide 20 MG Tab PO SCH (08:14)
[2022-12-15] MEDS: Metoprolol Succinate 25 MG Tab.ER PO SCH ×2 (08:16→21:00)
[2022-12-15] MEDS: Azithromycin 250 MG Tab PO SCH (08:19)
[2022-12-15] MEDS: Potassium Chloride 20 MEQ Tab.ER PO SCH (08:20)
[2022-12-15] MEDS: Insulin Glargine,Human Rec. Analog 100 Units/ML 3 ML Pen SUBCUT SCH ×2 (08:20→08:23)
[2022-12-15] MEDS: Rosuvastatin 10 MG Tab PO SCH (08:20)
[2022-12-15] MEDS: Multivitamin Tab PO SCH (08:20)
[2022-12-15] MEDS: Apixaban 5 MG Tab PO SCH ×2 (08:20→20:58)
[2022-12-15] MEDS: Miconazole 2% Crm 30 GM Tube TOP SCH ×2 (08:24→20:59)
[2022-12-15] MEDS: methylPREDNISolone Sodium Succinate 40 MG/1 ML SDV IVPUSH SCH ×2 (08:25→20:57)
[2022-12-15] MEDS: Albuterol 6.7 GM Inhaler INH PRN ×2 (08:32→20:06)
[2022-12-15] MEDS: Formoterol/Mometasone 200-5 MCG 8.8 GM Inhaler IH SCH ×2 (08:32→20:05)
[2022-12-15] MEDS: SIMBRINZA EYERT SCH ×2 (09:11→20:59)
[2022-12-15] MEDS: Carboxymethylcellulose Sodium 1% Ophth Gel 15 ML Bottle EYEBOTH SCH ×2 (09:11→21:00)
[2022-12-15] MEDS ORDERED: Insulin Glargine,Human Rec. Analog 100 Units/ML 3 ML Pen SUBCUT ONE (12:15)
[2022-12-15] MEDS ORDERED: Insulin Lispro 100 Unit/ML 3 ML KwikPen SUBCUT ONE (12:15)
[2022-12-15] MEDS: cefTRIAXone 2 GM in Sodium Chloride 0.9% 100 ML IV SCH (15:00)
[2022-12-15] MEDS: Digoxin 125 MCG Tab PO SCH (18:00)
[2022-12-15] MEDS: LOTEPREDNOL ETABONATE EYERT SCH (20:59)
[2022-12-15] MEDS: Sertraline 25 MG Tab PO SCH (21:01)
[2022-12-15] MEDS: Albuterol/Ipratropium 3.0-0.5 MG/3 ML Neb Soln NEB PRN (22:03)
[2022-12-16 05:52] LABS: ANION GAP 13.9 (5-15); BUN/CREATININE RATIO 19.4 (14-18); CALCIUM 8.5 mg/dL (8.5-10.1); CREATININE 1.7 mg/dL (0.7-1.3); EST CRCL DRUG DOSING (CG) 31.29 mL/min; MAGNESIUM 1.7 mg/dL (1.8-2.4); POTASSIUM,K 4.9 mEq/L (3.5-5.1)
[2022-12-16 05:54] LABS: EOSINOPHILS PERCENT AUTO 0 (0.8-7.0); HEMATOCRIT 30.5 % (40.1-51.0); HEMOGLOBIN 10.5 gm/dl (13.7-17.5); IMMATURE GRAN ABSOLUTE AUTO 0.06 K/mm3 (0.00-0.10); IMMATURE GRAN PERCENT AUTO 0.7 % (<=1.0); LYMPHOCYTES ABSOLUTE AUTO 0.31 K/mm3 (1.32-3.57); LYMPHOCYTES PERCENT AUTO 3.4 % (21.8-53.1); MEAN CORPUSCULAR HEMOGLOBIN 30.6 pg (25.7-32.2); MEAN CORPUSCULAR HGB CONC 34.4 g/dl (32.2-35.5); MEAN CORPUSCULAR VOLUME 88.9 fl (79.0-92.2); MEAN PLATELET VOLUME 9.6 fl (9.4-12.3); MONOCYTES ABSOLUTE AUTO 0.32 K/mm3 (0.30-0.82); MONOCYTES PERCENT AUTO 3.5 % (5.3-12.2); NEUTROPHILS ABSOLUTE AUTO 8.52 K/mm3 (1.78-5.38); NEUTROPHILS PERCENT AUTO 92.4 % (34.0-67.9); PLATELET COUNT,PLT 219 K/mm3 (163-337); RED BLOOD CELL COUNT 3.43 M/mm3 (4.63-6.08); WHITE BLOOD CELL COUNT,WBC 9.21 K/mm3 (4.23-9.07)
[2022-12-16 06:23] LABS: SLIDE REVIEW ABNORMAL SMEAR
[2022-12-16] MEDS: Insulin Lispro 100 Unit/ML 3 ML KwikPen SUBCUT SCH ×7 (07:31→21:21)
[2022-12-16] MEDS: Pantoprazole 40 MG Tab.CR PO SCH (07:31)
[2022-12-16] MEDS: Metoprolol Succinate 25 MG Tab.ER PO SCH ×2 (08:33→21:20)
[2022-12-16] MEDS: Apixaban 5 MG Tab PO SCH ×2 (08:33→21:19)
[2022-12-16] MEDS: Furosemide 20 MG Tab PO SCH (08:33)
[2022-12-16] MEDS: Rosuvastatin 10 MG Tab PO SCH (08:34)
[2022-12-16] MEDS: methylPREDNISolone Sodium Succinate 40 MG/1 ML SDV IVPUSH SCH ×2 (08:34→21:19)
[2022-12-16] MEDS: Multivitamin Tab PO SCH (08:34)
[2022-12-16] MEDS: Carboxymethylcellulose Sodium 1% Ophth Gel 15 ML Bottle EYEBOTH SCH ×2 (08:34→21:19)
[2022-12-16] MEDS: SIMBRINZA EYERT SCH ×2 (08:34→21:19)
[2022-12-16] MEDS: Azithromycin 250 MG Tab PO SCH (08:34)
[2022-12-16] MEDS: Miconazole 2% Crm 30 GM Tube TOP SCH ×2 (08:34→21:18)
[2022-12-16] MEDS: Formoterol/Mometasone 200-5 MCG 8.8 GM Inhaler IH SCH ×2 (08:49→21:46)
[2022-12-16] MEDS: Albuterol 6.7 GM Inhaler INH PRN (08:49)
[2022-12-16] MEDS ORDERED: Insulin Glargine,Human Rec. Analog 100 Units/ML 3 ML Pen SUBCUT SCH ×2 (09:00→09:45)
[2022-12-16] MEDS: Albuterol/Ipratropium 3.0-0.5 MG/3 ML Neb Soln NEB PRN ×2 (14:37→21:46)
[2022-12-16] MEDS: cefTRIAXone 2 GM in Sodium Chloride 0.9% 100 ML IV SCH (17:00)
[2022-12-16] MEDS: Digoxin 125 MCG Tab PO SCH (17:52)
[2022-12-16] MEDS: LOTEPREDNOL ETABONATE EYERT SCH (21:18)
[2022-12-16] MEDS: Sertraline 25 MG Tab PO SCH (21:19)
[2022-12-17 05:24] LABS: EOSINOPHILS PERCENT AUTO 0 (0.8-7.0); HEMATOCRIT 31.3 % (40.1-51.0); HEMOGLOBIN 10.9 gm/dl (13.7-17.5); IMMATURE GRAN ABSOLUTE AUTO 0.13 K/mm3 (0.00-0.10); IMMATURE GRAN PERCENT AUTO 1.3 % (<=1.0); LYMPHOCYTES ABSOLUTE AUTO 0.36 K/mm3 (1.32-3.57); LYMPHOCYTES PERCENT AUTO 3.6 % (21.8-53.1); MEAN CORPUSCULAR HEMOGLOBIN 30.9 pg (25.7-32.2); MEAN CORPUSCULAR HGB CONC 34.8 g/dl (32.2-35.5); MEAN CORPUSCULAR VOLUME 88.7 fl (79.0-92.2); MEAN PLATELET VOLUME 9.2 fl (9.4-12.3); MONOCYTES ABSOLUTE AUTO 0.43 K/mm3 (0.30-0.82); MONOCYTES PERCENT AUTO 4.4 % (5.3-12.2); NEUTROPHILS ABSOLUTE AUTO 8.95 K/mm3 (1.78-5.38); NEUTROPHILS PERCENT AUTO 90.7 % (34.0-67.9); PLATELET COUNT,PLT 243 K/mm3 (163-337); RED BLOOD CELL COUNT 3.53 M/mm3 (4.63-6.08); WHITE BLOOD CELL COUNT,WBC 9.87 K/mm3 (4.23-9.07)
[2022-12-17 05:38] LABS: ANION GAP 14.5 (5-15); BUN/CREATININE RATIO 22.4 (14-18); C-REACTIVE PROTEIN 4.7 mg/dL (<1.0); CALCIUM 8.9 mg/dL (8.5-10.1); CREATININE 1.7 mg/dL (0.7-1.3); EST CRCL DRUG DOSING (CG) 31.29 mL/min; MAGNESIUM 1.8 mg/dL (1.8-2.4); POTASSIUM,K 4.5 mEq/L (3.5-5.1)
[2022-12-17 05:49] LABS: SLIDE REVIEW ABNORMAL SMEAR
[2022-12-17] MEDS: Pantoprazole 40 MG Tab.CR PO SCH (07:00)
[2022-12-17] MEDS: Insulin Lispro 100 Unit/ML 3 ML KwikPen SUBCUT SCH ×4 (07:23→11:48)
[2022-12-17] MEDS: Formoterol/Mometasone 200-5 MCG 8.8 GM Inhaler IH SCH (08:07)
[2022-12-17] MEDS: Albuterol/Ipratropium 3.0-0.5 MG/3 ML Neb Soln NEB PRN (08:07)
[2022-12-17] MEDS ORDERED: predniSONE 20 MG Tab PO ONE (08:59)
[2022-12-17] MEDS ORDERED: Insulin Glargine,Human Rec. Analog 100 Units/ML 3 ML Pen SUBCUT SCH (09:00)
[2022-12-17] MEDS: Apixaban 5 MG Tab PO SCH (09:31)
[2022-12-17] MEDS: Multivitamin Tab PO SCH (09:31)
[2022-12-17] MEDS: Azithromycin 250 MG Tab PO SCH (09:31)
[2022-12-17] MEDS: Furosemide 20 MG Tab PO SCH (09:31)
[2022-12-17] MEDS: Metoprolol Succinate 25 MG Tab.ER PO SCH (09:33)
[2022-12-17] MEDS: Miconazole 2% Crm 30 GM Tube TOP SCH (09:36)
[2022-12-17] MEDS: SIMBRINZA EYERT SCH (09:38)
[2022-12-17] MEDS: Rosuvastatin 10 MG Tab PO SCH (09:38)
[2022-12-17] MEDS: Carboxymethylcellulose Sodium 1% Ophth Gel 15 ML Bottle EYEBOTH SCH (09:38)
[2022-12-17] MEDS ORDERED: cefTRIAXone 2 GM in Sodium Chloride 0.9% 100 ML IV ONE (12:00)
[2022-12-18] MEDS ORDERED: predniSONE 20 MG Tab PO SCH (07:00)
== END 2022-12-17 13:50 | disposition home or self-care (01) | DRG 871 ==
LOC: JD.ED 13:53 → JD.MS 18:34
PROVIDERS: ADMIT Internal Medicine; ATTEND Internal Medicine
DX: A41.9 Sepsis, unspecified organism (principal); J96.01 Acute respiratory failure with hypoxia; N39.0 Urinary tract infection, site not specified; N17.9 Acute kidney failure, unspecified; E87.1 Hypo-osmolality and hyponatremia; I50.32 Chronic diastolic (congestive) heart failure; I13.0 Hypertensive heart and chronic kidney disease with heart failure and stage 1 through stage 4 chronic kidney disease, or unspecified chronic kidney disease; J98.11 Atelectasis; I25.10 Atherosclerotic heart disease of native coronary artery without angina pectoris; E78.5 Hyperlipidemia, unspecified; M15.9 Polyosteoarthritis, unspecified; F41.9 Anxiety disorder, unspecified; I48.91 Unspecified atrial fibrillation; N18.32 Chronic kidney disease, stage 3b; E83.42 Hypomagnesemia; G47.30 Sleep apnea, unspecified; E11.22 Type 2 diabetes mellitus with diabetic chronic kidney disease; Z96.653 Presence of artificial knee joint, bilateral; Z96.619 Presence of unspecified artificial shoulder joint; M10.9 Gout, unspecified; E87.6 Hypokalemia; J44.9 Chronic obstructive pulmonary disease, unspecified; Z20.822 Contact with and (suspected) exposure to COVID-19; Z79.51 Long term (current) use of inhaled steroids; Z79.899 Other long term (current) drug therapy; Z79.84 Long term (current) use of oral hypoglycemic drugs; Z95.5 Presence of coronary angioplasty implant and graft; Z91.041 Radiographic dye allergy status; Z88.8 Allergy status to other drugs, medicaments and biological substances; Z79.01 Long term (current) use of anticoagulants; Z98.49 Cataract extraction status, unspecified eye
CPT/HCPCS: 0241U; 36415; 71046; 71270; 80048; 82947; 83735; 85025; 85027; 86140; 87070; 87205; 87486; 87581; 87633; 87798; 94640; 94660; 94667; 94668; 94760; 94761; 97110; 97162; 97166; 71045; 71045-26; 74176; 74176-26; 80053; 83605; 87040; 96365; 99223; 99233; 99239; 99285; 99285-25; A9270-GY; J0696; J1200; J1815; J1815-GY; J2920; J3475; J3490; J7030; J7512; J7620-GY; Q9967

== ENCOUNTER 2023-02-11 19:23 | Emergency (ER) | payer MEDICARE, OTHER ==
[2023-02-11 20:48] LABS: BASOPHILS ABSOLUTE AUTO 0.04 K/mm3 (0.01-0.08); BASOPHILS PERCENT AUTO 0.6 % (0.1-1.2); EOSINOPHILS ABSOLUTE AUTO 0.02 K/mm3 (0.04-0.54); EOSINOPHILS PERCENT AUTO 0.3 (0.8-7.0); HEMATOCRIT 40.5 % (40.1-51.0); HEMOGLOBIN 13.7 gm/dl (13.7-17.5); IMMATURE GRAN ABSOLUTE AUTO 0.05 K/mm3 (0.00-0.10); IMMATURE GRAN PERCENT AUTO 0.7 % (<=1.0); LYMPHOCYTES ABSOLUTE AUTO 1.51 K/mm3 (1.32-3.57); LYMPHOCYTES PERCENT AUTO 21.6 % (21.8-53.1); MEAN CORPUSCULAR HEMOGLOBIN 31.4 pg (25.7-32.2); MEAN CORPUSCULAR HGB CONC 33.8 g/dl (32.2-35.5); MEAN CORPUSCULAR VOLUME 92.7 fl (79.0-92.2); MEAN PLATELET VOLUME 10.2 fl (9.4-12.3); MONOCYTES ABSOLUTE AUTO 0.79 K/mm3 (0.30-0.82); MONOCYTES PERCENT AUTO 11.3 % (5.3-12.2); NEUTROPHILS ABSOLUTE AUTO 4.58 K/mm3 (1.78-5.38); NEUTROPHILS PERCENT AUTO 65.5 % (34.0-67.9); PLATELET COUNT,PLT 177 K/mm3 (163-337); RED BLOOD CELL COUNT 4.37 M/mm3 (4.63-6.08); WHITE BLOOD CELL COUNT,WBC 6.99 K/mm3 (4.23-9.07)
[2023-02-11 21:08] LABS: A/G RATIO 1.3 (1-2); ALANINE AMINOTRANSFERASE,ALT 26 U/L (16-63); ALBUMIN 3.9 g/dl (3.4-5.0); ALKALINE PHOSPHATASE 83 U/L (46-116); ANION GAP 14.9 (5-15); ASPARTATE AMNIOTRANSFERASE,AST 21 U/L (15-37); BILIRUBIN TOTAL 0.9 mg/dL (0.2-1.0); BLOOD UREA NITROGEN,BUN 25 mg/dL (7-18); BUN/CREATININE RATIO 16.7 (14-18); CALCIUM 9.1 mg/dL (8.5-10.1); CARBON DIOXIDE,CO2 26 mEq/L (21-32); CHLORIDE,CL 102 mEq/L (98-107); CREATININE 1.5 mg/dL (0.7-1.3); ESTIMATED GFR 46 mL/min (>60); GLUCOSE RANDOM 200 mg/dL (70-99); POTASSIUM,K 3.9 mEq/L (3.5-5.1); SODIUM,NA 139 mEq/L (136-145)
== END 2023-02-11 23:28 | disposition home or self-care (01) ==
LOC: JD.ED 19:23
DX: G45.9 Transient cerebral ischemic attack, unspecified (principal); I48.91 Unspecified atrial fibrillation; I25.10 Atherosclerotic heart disease of native coronary artery without angina pectoris; E78.00 Pure hypercholesterolemia, unspecified; I10 Essential (primary) hypertension; J45.909 Unspecified asthma, uncomplicated; K21.9 Gastro-esophageal reflux disease without esophagitis; E11.9 Type 2 diabetes mellitus without complications; E66.9 Obesity, unspecified; Z88.8 Allergy status to other drugs, medicaments and biological substances; Z91.041 Radiographic dye allergy status; Z79.01 Long term (current) use of anticoagulants; Z79.51 Long term (current) use of inhaled steroids; Z79.84 Long term (current) use of oral hypoglycemic drugs; Z79.899 Other long term (current) drug therapy
CPT/HCPCS: 36415; 70450; 70450-26; 80053; 85025; 99285

== ENCOUNTER 2023-09-22 18:20 | Emergency (ER) | payer MEDICARE, OTHER ==
[2023-09-22 19:42] LABS: BASOPHILS PERCENT AUTO 0.5 % (0.0-1.0); EOSINOPHILS ABSOLUTE AUTO 0.1 K/mm3 (0.0-0.4); EOSINOPHILS PERCENT AUTO 0.9 % (0.0-6.0); HEMATOCRIT 41.4 % (42.0-52.0); IMMATURE GRAN ABSOLUTE AUTO 0.02 K/mm3 (0.00-0.05); IMMATURE GRAN PERCENT AUTO 0.3 % (0.0-0.4); LYMPHOCYTES ABSOLUTE AUTO 0.9 K/mm3 (1.0-4.8); LYMPHOCYTES PERCENT AUTO 11.7 % (24.0-44.0); MEAN CORPUSCULAR HEMOGLOBIN 30.4 pg (28.0-32.0); MEAN CORPUSCULAR HGB CONC 33.8 g/dl (32.0-36.0); MEAN CORPUSCULAR VOLUME 89.8 fl (83.0-99.0); MEAN PLATELET VOLUME 9.7 fl (9.4-12.4); MONOCYTES ABSOLUTE AUTO 0.8 K/mm3 (0.0-0.8); MONOCYTES PERCENT AUTO 10.2 % (0.0-8.0); NEUTROPHILS PERCENT AUTO 76.4 % (41.0-71.0); PLATELET COUNT,PLT 166 K/mm3 (150-400); RED BLOOD CELL COUNT 4.61 M/mm3 (4.52-5.90); WHITE BLOOD CELL COUNT,WBC 7.86 K/mm3 (3.9-11.3)
[2023-09-22 20:00] LABS: INR 1.1; PROTHROMBIN TIME 11.7 SECONDS (9.7-12.0)
[2023-09-22 20:11] LABS: ALANINE AMINOTRANSFERASE,ALT 19 U/L (16-63); ALBUMIN 3.6 g/dl (3.4-5.0); ALKALINE PHOSPHATASE 72 U/L (46-116); ANION GAP 16.2 (5-15); ASPARTATE AMNIOTRANSFERASE,AST 18 U/L (15-37); BILIRUBIN TOTAL 0.9 mg/dL (0.2-1.0); BLOOD UREA NITROGEN,BUN 25 mg/dL (7-18); BUN/CREATININE RATIO 15.6 (14-18); CALCIUM 9.2 mg/dL (8.5-10.1); CARBON DIOXIDE,CO2 24 mEq/L (21-32); CHLORIDE,CL 99 mEq/L (98-107); CREATININE 1.6 mg/dL (0.7-1.3); ESTIMATED GFR 42 mL/min (>60); GLUCOSE RANDOM 115 mg/dL (70-99); MAGNESIUM 1.9 mg/dL (1.8-2.4); POTASSIUM,K 4.2 mEq/L (3.5-5.1); PROTEIN TOTAL,TP 7.2 g/dl (6.4-8.2); SODIUM,NA 135 mEq/L (136-145); TROPONIN I HIGH SENSITIVITY 12 pg/mL (<=76)
[2023-09-22 20:15] LABS: HEMOGLOBIN A1C 6.8 %
[2023-09-22 20:19] LABS: LACTIC ACID 1.2 mmol/L (0.4-2.0)
[2023-09-22] MEDS: Sodium Chloride 0.9% 1,000 ML IV SCH (20:28)
[2023-09-22] MEDS: Acetaminophen 325 MG Tab PO PRN (20:28)
[2023-09-22 20:43] LABS: APPEARANCE,URINE CLEAR (Clear); BILIRUBIN,URINE NEGATIVE (Negative); COLOR,URINE DARK YELLOW (Yellow); GLUCOSE,URINE TRACE (Negative); KETONES,URINE NEGATIVE (Negative); LEUKOCYTE ESTERASE,URINE NEGATIVE (Negative); NITRITE,URINE NEGATIVE (Negative); OCCULT BLOOD,URINE NEGATIVE (Negative); PROTEIN,URINE TRACE (Negative); UROBILINOGEN,URINE 0.2 (0.2-1.0)
[2023-09-22 20:51] LABS: BACTERIA,URINE MODERATE /hpf (FEW); MUCUS,URINE FEW /hpf (FEW); RBC,URINE 0-5 /hpf (0-5); SQUAMOUS EPITHELIAL CELLS,UR 0-5 /hpf (0-5); WBC,URINE 0-5 /hpf (0-5)
[2023-09-22 20:55] LABS: CORONAVIRUS COVID-19 NAA NEGATIVE (NEGATIVE); INFLUENZA A NAA NEGATIVE (NEGATIVE); RESPIRATORY SYNCYTIAL VIR NAA NEGATIVE (NEGATIVE)
[2023-09-22] MEDS: cefTRIAXone 1 GM in Sodium Chloride 0.9% 100 ML IV ONE (22:20)
[2023-09-22] MEDS: traMADol 50 MG Tab PO ONE (23:28)
== END 2023-09-22 23:43 | disposition home or self-care (01) ==
LOC: JD.ED 18:20
DX: R07.81 Pleurodynia (principal); J06.9 Acute upper respiratory infection, unspecified; R50.9 Fever, unspecified; R06.02 Shortness of breath; I25.10 Atherosclerotic heart disease of native coronary artery without angina pectoris; I12.9 Hypertensive chronic kidney disease with stage 1 through stage 4 chronic kidney disease, or unspecified chronic kidney disease; N18.9 Chronic kidney disease, unspecified; E78.00 Pure hypercholesterolemia, unspecified; I48.91 Unspecified atrial fibrillation; J45.909 Unspecified asthma, uncomplicated; K21.9 Gastro-esophageal reflux disease without esophagitis; E11.22 Type 2 diabetes mellitus with diabetic chronic kidney disease; E66.9 Obesity, unspecified; Z87.891 Personal history of nicotine dependence; Z86.16 Personal history of COVID-19; Z95.5 Presence of coronary angioplasty implant and graft; Z79.01 Long term (current) use of anticoagulants; Z79.84 Long term (current) use of oral hypoglycemic drugs; Z79.899 Other long term (current) drug therapy; Z88.8 Allergy status to other drugs, medicaments and biological substances; Z91.041 Radiographic dye allergy status
CPT/HCPCS: 0241U; 36415; 51798; 71045; 80053; 80162; 81001; 83036; 83605; 83735; 83880; 84484; 85025; 85610; 85652; 85730; 86140; 87040; 93005; 96361; 96365; 99285; A9270; J0696; J3490; J7030; 93010; 99284

== ENCOUNTER 2024-01-04 05:07 | Emergency (ER) | payer MEDICARE, OTHER ==
[2024-01-04] MEDS: Aluminum Hydroxide/Magnesium Hydroxide/Simethicone Susp 30 ML Cup PO ONE (05:41)
[2024-01-04] MEDS: Famotidine 20 MG/2 ML SDV IVPUSH ONE (05:41)
[2024-01-04] MEDS: Losartan 100 MG Tab PO SCH (05:41)
[2024-01-04 05:58] LABS: BASOPHILS ABSOLUTE AUTO 0.1 K/mm3 (0.0-0.2); BASOPHILS PERCENT AUTO 0.7 % (0.0-1.0); EOSINOPHILS ABSOLUTE AUTO 0.1 K/mm3 (0.0-0.4); EOSINOPHILS PERCENT AUTO 1.4 % (0.0-6.0); HEMATOCRIT 46.9 % (42.0-52.0); HEMOGLOBIN 16.2 gm/dl (14.0-18.0); IMMATURE GRAN ABSOLUTE AUTO 0.09 K/mm3 (0.00-0.05); IMMATURE GRAN PERCENT AUTO 1.1 % (0.0-0.4); LYMPHOCYTES ABSOLUTE AUTO 0.8 K/mm3 (1.0-4.8); LYMPHOCYTES PERCENT AUTO 10.3 % (24.0-44.0); MEAN CORPUSCULAR HEMOGLOBIN 32.7 pg (28.0-32.0); MEAN CORPUSCULAR HGB CONC 34.5 g/dl (32.0-36.0); MEAN CORPUSCULAR VOLUME 94.6 fl (83.0-99.0); MEAN PLATELET VOLUME 10.2 fl (9.4-12.4); MONOCYTES ABSOLUTE AUTO 0.8 K/mm3 (0.0-0.8); MONOCYTES PERCENT AUTO 9.4 % (0.0-8.0); NEUTROPHILS ABSOLUTE AUTO 6.2 K/mm3 (1.8-7.7); NEUTROPHILS PERCENT AUTO 77.1 % (41.0-71.0); PLATELET COUNT,PLT 138 K/mm3 (150-400); RED BLOOD CELL COUNT 4.96 M/mm3 (4.52-5.90); WHITE BLOOD CELL COUNT,WBC 8.08 K/mm3 (3.9-11.3)
[2024-01-04 06:02] LABS: INR 1.01; PROTHROMBIN TIME 10.8 SECONDS (9.7-12.0)
[2024-01-04 06:03] LABS: PTT,PARTIAL THROMBOPLSTIN TIME 32.7 SECONDS (21.7-31.4)
[2024-01-04 06:05] LABS: A/G RATIO 1.2 (1-2); ALBUMIN 4.1 g/dl (3.4-5.0); ANION GAP 12.5 (5-15); BILIRUBIN TOTAL 1.1 mg/dL (0.2-1.0); BUN/CREATININE RATIO 21.2 (14-18); CALCIUM 9.7 mg/dL (8.5-10.1); CREATININE 1.7 mg/dL (0.7-1.3); EST CRCL DRUG DOSING (CG) 26.5 mL/min; POTASSIUM,K 4.5 mEq/L (3.5-5.1); PROTEIN TOTAL,TP 7.6 g/dl (6.4-8.2)
[2024-01-04] MEDS: Pantoprazole 40 MG Vial IVPUSH ONE (11:12)
== END 2024-01-04 12:18 | disposition home or self-care (01) ==
LOC: JD.ED 05:07
DX: R07.89 Other chest pain (principal); I12.9 Hypertensive chronic kidney disease with stage 1 through stage 4 chronic kidney disease, or unspecified chronic kidney disease; N18.9 Chronic kidney disease, unspecified; I25.10 Atherosclerotic heart disease of native coronary artery without angina pectoris; I48.91 Unspecified atrial fibrillation; K21.9 Gastro-esophageal reflux disease without esophagitis; Z87.891 Personal history of nicotine dependence; E11.22 Type 2 diabetes mellitus with diabetic chronic kidney disease; E66.9 Obesity, unspecified; Z86.16 Personal history of COVID-19; Z95.5 Presence of coronary angioplasty implant and graft; Z79.899 Other long term (current) drug therapy; Z79.84 Long term (current) use of oral hypoglycemic drugs; Z79.01 Long term (current) use of anticoagulants; Z79.82 Long term (current) use of aspirin; Z88.8 Allergy status to other drugs, medicaments and biological substances; Z91.041 Radiographic dye allergy status; Z68.21 Body mass index [BMI] 21.0-21.9, adult
CPT/HCPCS: 36415; 71045; 80053; 83690; 83880; 84484; 85025; 85610; 85730; 93005; 96374; 96375; 99285; A9270; C9113; J3490; 93010; 99284

== ENCOUNTER 2025-06-01 11:23 | Emergency (ER) | payer MEDICARE, OTHER ==
[2025-06-01 13:11] LABS: BASOPHILS ABSOLUTE AUTO 0.1 K/mm3 (0.0-0.2); BASOPHILS PERCENT AUTO 0.6 % (0.0-1.0); EOSINOPHILS ABSOLUTE AUTO 0.0 K/mm3 (0.0-0.4); EOSINOPHILS PERCENT AUTO 0.3 % (0.0-6.0); IMMATURE GRAN ABSOLUTE AUTO 0.31 K/mm3 (0.00-0.05); IMMATURE GRAN PERCENT AUTO 3.9 % (0.0-0.4); LYMPHOCYTES ABSOLUTE AUTO 1.1 K/mm3 (1.0-4.8); LYMPHOCYTES PERCENT AUTO 13.6 % (24.0-44.0); MEAN PLATELET VOLUME 10.3 fl (9.4-12.4); MONOCYTES ABSOLUTE AUTO 0.8 K/mm3 (0.0-0.8); MONOCYTES PERCENT AUTO 9.7 % (0.0-8.0); NEUTROPHILS ABSOLUTE AUTO 5.7 K/mm3 (1.8-7.7); NEUTROPHILS PERCENT AUTO 71.9 % (41.0-71.0); NRBC ABSOLUTE 0.00 (0.00-0.02); NRBC PERCENT 0.0 % (0.0-0.2); PLATELET COUNT,PLT 143 K/mm3 (150-400); RED BLOOD CELL COUNT 4.31 M/mm3 (4.52-5.90); WHITE BLOOD CELL COUNT,WBC 7.92 K/mm3 (3.9-11.3)
[2025-06-01 13:34] LABS: CARBON DIOXIDE,CO2 26.0 mEq/L (21-32); CHLORIDE,CL 101.0 mEq/L (98-107); POTASSIUM,K 4.3 mEq/L (3.5-5.1); SODIUM,NA 135.0 mEq/L (136-145)
[2025-06-01 13:35] LABS: A/G RATIO 1.2 (1-2); ALANINE AMINOTRANSFERASE,ALT 60.0 U/L (16-63); ASPARTATE AMNIOTRANSFERASE,AST 30.0 U/L (15-37); BILIRUBIN TOTAL 1.0 mg/dL (0.2-1.0); BLOOD UREA NITROGEN,BUN 44.0 mg/dL (7-18); CREATININE 1.5 mg/dL (0.7-1.3); EST CRCL DRUG DOSING (CG) 33.57 mL/min; ESTIMATED GFR 45.0 mL/min (>60); GLUCOSE RANDOM 203.0 mg/dL (70-99); PROTEIN TOTAL,TP 6.6 g/dl (6.4-8.2)
[2025-06-01] MEDS: cefTRIAXone 1 GM, Lidocaine 1% 2.1 ML IM ONE (13:59)
== END 2025-06-01 14:15 | disposition home or self-care (01) ==
LOC: JD.ED 11:23
DX: L03.113 Cellulitis of right upper limb (principal); I48.91 Unspecified atrial fibrillation; I25.10 Atherosclerotic heart disease of native coronary artery without angina pectoris; J45.909 Unspecified asthma, uncomplicated; K21.9 Gastro-esophageal reflux disease without esophagitis; I12.9 Hypertensive chronic kidney disease with stage 1 through stage 4 chronic kidney disease, or unspecified chronic kidney disease; N18.9 Chronic kidney disease, unspecified; E11.22 Type 2 diabetes mellitus with diabetic chronic kidney disease; Z86.16 Personal history of COVID-19; Z88.8 Allergy status to other drugs, medicaments and biological substances; Z91.041 Radiographic dye allergy status; Z79.899 Other long term (current) drug therapy; Z79.82 Long term (current) use of aspirin; Z79.01 Long term (current) use of anticoagulants; Z79.84 Long term (current) use of oral hypoglycemic drugs
CPT/HCPCS: 36415; 73130; 80053; 85025; 86140; 96372; 99283; J0696; J2003

== ENCOUNTER 2025-07-27 17:54 | Emergency (ER) | payer MEDICARE, OTHER ==
[2025-07-27] MEDS ORDERED: Diphtheria/Tetanus Toxoids,Adult (Td) 0.5 ML SDV IM ONE (18:48)
[2025-07-27] MEDS: Diphtheria,Pertussis(Acell),Tetanus Vaccine 0.5 ML Syringe IM ONE (18:57)
== END 2025-07-27 21:33 | disposition home or self-care (01) ==
LOC: JD.ED 17:54
DX: S32.010A Wedge compression fracture of first lumbar vertebra, initial encounter for closed fracture (principal); S50.01XA Contusion of right elbow, initial encounter; I25.10 Atherosclerotic heart disease of native coronary artery without angina pectoris; I48.91 Unspecified atrial fibrillation; I12.9 Hypertensive chronic kidney disease with stage 1 through stage 4 chronic kidney disease, or unspecified chronic kidney disease; N18.9 Chronic kidney disease, unspecified; E78.00 Pure hypercholesterolemia, unspecified; J45.909 Unspecified asthma, uncomplicated; K21.9 Gastro-esophageal reflux disease without esophagitis; E11.22 Type 2 diabetes mellitus with diabetic chronic kidney disease; E66.9 Obesity, unspecified; Z86.16 Personal history of COVID-19; Z95.5 Presence of coronary angioplasty implant and graft; Z79.899 Other long term (current) drug therapy; Z79.01 Long term (current) use of anticoagulants; Z23 Encounter for immunization; Z68.24 Body mass index [BMI] 24.0-24.9, adult; Z88.8 Allergy status to other drugs, medicaments and biological substances; Z91.041 Radiographic dye allergy status; W01.198A Fall on same level from slipping, tripping and stumbling with subsequent striking against other object, initial encounter
CPT/HCPCS: 12002; 70450; 72131; 72220; 90471; 90715; 99284; A9270